=== PATIENT | male | born 1955 | race Caucasian/White ===

== ENCOUNTER → 2022-09-01 12:33 | Outpatient (BNVA) | payer MEDICARE, MEDICAID, SELFPAY | PROVIDERS: PCP Family Medicine; Visit Provider Surgery | DX: Z12.11 Encounter for screening for malignant neoplasm of colon (principal) | CPT/HCPCS: 99202 ==

== ENCOUNTER 2022-09-16 10:23 | Outpatient (REF) | payer MEDICARE, MEDICAID, SELFPAY ==
[2022-09-16 15:42] LABS: Urine Cytology See Pathology rpt
== END 2022-09-16 10:24 | disposition home or self-care (01) ==
LOC: HO.LAB 10:23
PROVIDERS: PCP Family Medicine; Visit Provider Urology
DX: N40.0 Benign prostatic hyperplasia without lower urinary tract symptoms (principal); R31.29 Other microscopic hematuria; Z12.5 Encounter for screening for malignant neoplasm of prostate
CPT/HCPCS: 51798; 87086; 88112; 99202

== ENCOUNTER 2023-01-24 09:34 | Outpatient (REF) | payer MEDICARE, MEDICAID, SELFPAY ==
--- NOTE | ~2023-01-24 | CT_ITS ---
EXAMINATION: CT UROGRAM WITHOUT AND WITH CONTRAST CLINICAL INFORMATION: Reason for Exam R31.29 - Other microscopic hematuria COMPARISON: No pertinent prior examinations are available for comparison. TECHNIQUE: Noncontrast helical scanning was performed with submillimeter collimation through the abdomen and pelvis. Postcontrast helical scanning was then repeated with submillimeter collimation through the abdomen and pelvis in the pyelographic/urographic phase using split dose technique with 85 mL of Omnipaque 350 intravenous contrast. Sagittal and coronal 2-D reconstructions were obtained. This CT examination was performed using dose optimization techniques as appropriate, variously including the following: *Automated exposure control *Adjustment of mA and/or kV according to patient size (this includes techniques or standardized protocols for targeted exams where dose is matched to indication/reason for exam; i.e. extremities or head) *Use of iterative reconstruction technique DLP: 937 mGycm FINDINGS: KIDNEYS, URETERS, BLADDER: Specific attention was given to the kidneys, ureters, and bladder. The right kidney measures 11.2 cm in size and the left kidney measures 10.8 cm in size. NONCONTRAST: Punctate nonobstructive calculus lower left kidney 11 cm from the posterolateral skin surface. 2 mm nonobstructing calculus right lower kidney 11.5 cm from posterior lateral skin surface. POSTCONTRAST NEPHROGRAPHIC/UROGRAPHIC: There are multiple small simple density nonenhancing cysts in the right kidney measuring up to 1.8 cm. No follow-up imaging is recommended. Symmetric nephrograms. No suspicious renal mass. Symmetric urinary excretion. No collecting system lesion is seen. No hydroureteronephrosis. BLADDER: There is a 4.5 x 3.0 x 2.6 cm lobulated and pedunculated mass enhancing along the left wall of the bladder just anterior to the left UVJ. No evidence of local extravesicular extension. PELVIC VISCERA: The prostate measures 5.2 x 3.9 x 4.3 cm, approximately 40 mL. OTHER: LUNG BASES: No suspicious lung nodules. No pericardial effusion. LIVER, GALLBLADDER, AND BILIARY TREE: Tiny simple cysts in the left hepatic lobe. No follow-up imaging is recommended. No suspicious liver mass. No biliary ductal dilatation. The gallbladder is unremarkable with no evidence of radiopaque gallstones, gallbladder wall thickening, or obvious pericholecystic inflammatory changes. PANCREAS: No discrete pancreatic mass. No ductal dilatation. SPLEEN: Normal. ADRENAL GLANDS: No adrenal mass. GASTROINTESTINAL TRACT: The small bowel is normal in caliber. The appendix is normal. There is mild sigmoid diverticulosis without evidence of diverticulitis. ABDOMINAL WALL: No significant hernia is appreciated. LYMPH NODES: No enlarged lymph nodes. VASCULAR: Aortic aneurysm. OSSEOUS STRUCTURES: Degenerative changes in the spine. Well-circumscribed densely sclerotic lesion in the left inferior pubic ramus is likely a bone island. CT/CT urogram IMPRESSION: 4.5 cm pedunculated mass along the left urinary bladder wall suspicious for neoplasm. Cystoscopy is recommended. Tiny bilateral nonobstructing renal calculi. No hydroureteronephrosis.
[2023-01-24] MEDS: iohexoL 350 MG/ML 100 ML INFUS..BTL 85 ML IV (10:30)
[2023-01-25 13:04] LABS: Creatinine POC 1.1 mg/dL (0.5-1.4); GFR POC > 60
== END 2023-01-24 09:35 | disposition home or self-care (01) ==
LOC: HO.CT 09:34
PROVIDERS: PCP Family Medicine; Visit Provider Urology
DX: R31.29 Other microscopic hematuria (principal)
CPT/HCPCS: 74178; 82565; Q9967

== ENCOUNTER → 2023-02-04 08:11 | Outpatient (BNVA) | payer MEDICARE, MEDICAID, SELFPAY | PROVIDERS: PCP Family Medicine; Visit Provider Urology | DX: N32.9 Bladder disorder, unspecified (principal); R31.0 Gross hematuria | CPT/HCPCS: 52000; 99212 ==

== ENCOUNTER 2023-02-15 06:47 | Day surgery (SDC) | payer MEDICARE, MEDICAID, SELFPAY ==
--- NOTE | 2023-02-14 10:09 | HO.ANESPROP2 ---
Documented by User: Sandrita Ahumada NP 02/14/23 10:09 HPI - Anesthesia Eval Consult details Narrative: 67yo M for TUR Bladder Tumor PMFSH Active Problems Active Problems: All Active Problems (Updated 02/14/23 @ 07:58 by Vivian Leon, RN) Microscopic hematuria (Acute) BPH (benign prostatic hyperplasia) (Acute) Screening PSA (prostate specific antigen) (Acute) Lesion of bladder (Acute) Gross hematuria (Acute) Colon cancer screening (Acute) GERD (gastroesophageal reflux disease) (Acute) Past Medical History Medical History Aortic aneurysm Colon cancer screening GERD (gastroesophageal reflux disease) HTN (hypertension) Family History Family History Mother No problems noted. Father Stroke aborted by administration of thrombolytic agent Surgical History Surgical History (Updated 02/15/23 @ 08:54 by Khloe Lord MD) History of colonoscopy Social History Social History Alcohol intake: never Patient Tobacco Use Status: Never used Tobacco Use of substances other than those prescribed or required for medical reasons: No Are you DNR?: No Advance Directives: No Advance Directives Information Provided: Yes Recently lost weight without trying: No Nutrition Risks: No Nutritional Risk Meds Allergies Allergy/AdvReac Type Severity Reaction Status Date / Time No Known Allergies Allergy Verified 02/04/23 08:38 Home Medications Medication Instructions Recorded Confirmed Last Taken Type losartan 50 mg tablet 50 mg PO DAILY 09/16/22 02/15/23 Unknown History magnesium gluconate 27 mg 27 mg PO DAILY 09/16/22 02/15/23 Unknown History magnesium (500 mg) tablet (Mag-G) omeprazole 20 mg capsule,delayed 20 mg PO DAILY 09/16/22 02/15/23 Unknown History release simvastatin 40 mg tablet 40 mg PO BEDTIME 09/16/22 02/15/23 Unknown History Exam Exam Date and Time: February 14, 2023 1009 Assessment and Plan Assessment Anesthesia Assessment: Chart Reviewed Documented by User: Khloe Lord MD 02/15/23 08:56 [facility] Active Problems Active Problems: All Active Problems (Updated 02/15/23 @ 08:40 by Khloe Lord MD) Microscopic hematuria (Acute) BPH (benign prostatic hyperplasia) (Acute) Screening PSA (prostate specific antigen) (Acute) Lesion of bladder (Acute) Gross hematuria (Acute) Colon cancer screening (Acute) GERD (gastroesophageal reflux disease) (Acute) Aortic aneurysm- ? incidental finding on CT urogram. No other information available Past Medical History Medical History Aortic aneurysm Colon cancer screening GERD (gastroesophageal reflux disease) HTN (hypertension) Family History Family History Mother No problems noted. Father Stroke aborted by administration of thrombolytic agent Family history of problems with anesthesia: No Surgical History Surgical History (Updated 02/15/23 @ 08:54 by Khloe Lord MD) History of colonoscopy History of Problems with Anesthesia: No Social History Social History Alcohol intake: never Patient Tobacco Use Status: Never used Tobacco Use of substances other than those prescribed or required for medical reasons: No Are you DNR?: No Advance Directives: No Advance Directives Information Provided: Yes Recently lost weight without trying: No Nutrition Risks: No Nutritional Risk Meds Allergies Allergy/AdvReac Type Severity Reaction Status Date / Time No Known Allergies Allergy Verified 02/04/23 08:38 Home Medications Medication Instructions Recorded Confirmed Last Taken Type losartan 50 mg tablet 50 mg PO DAILY 09/16/22 02/15/23 Unknown History magnesium gluconate 27 mg 27 mg PO DAILY 09/16/22 02/15/23 Unknown History magnesium (500 mg) tablet (Mag-G) omeprazole 20 mg capsule,delayed 20 mg PO DAILY 09/16/22 02/15/23 Unknown History release simvastatin 40 mg tablet 40 mg PO BEDTIME 09/16/22 02/15/23 Unknown History Exam Height,Weight and Vital Signs: Height 6 ft 2 in Weight 91.172 kg Vital Signs Temp Pulse Resp BP Pulse Ox O2 Del Method 02/15/23 07:56 97.5 F 87 16 137/85 98 Room Air Airway Mallampati Class: II TM Dist: >3cm Neck ROM: Full Partial: Upper Loose/Missing/Broken Teeth: Yes (Missing tooth bottom front. Teeth very spaced out but denies broken or loose teeth. [place] top front intact) Heart: RRR Lungs: CTAB Assessment and Plan Assessment Anesthesia Assessment: Anesthesia Plan Discussed Final Anesthetic Review Family History of Problems with Anesthesia: No History of Problems with Anesthesia: No NPO: Yes ASA Class: II Final Preanesthetic Review: No Changes in Pt Med Stat, Meds/Allgs Chart Reviewed, Consent Obtained/Reviewed and Anes Risks/Benef Reviewed Patient Risk: Intermediate Procedure Risk: Low Assessment/Block/Sedation in SS: Assess/Block/Sedation-SS Anesthetic Plan Anesthetic Plan: GA Disposition: Standard PACU
[2023-02-15] VITALS (15 sets, daily range): BP systolic 106–137; BP diastolic 66–95; PULSE 74–96; RESP 12–20; TEMP 36.1–36.6; O2SAT 97–100; BMI 25.8
[2023-02-15] MEDS: Lactated Ringers 1,000 ML 100 ML IVCONT (08:12)
--- NOTE | 2023-02-15 09:23 | MHC.SHP ---
Pre-Procedural Eval Section A Date of Service: 02/15/23 The patient is an INPATIENT: No The History & Physical has been completed within 30 days and I have reviewed it.: Yes Section B Chief Complaint: Bladder disorder, unspecified Allergies: Allergies Allergy/AdvReac Type Severity Reaction Status Date / Time No Known Allergies Allergy Verified 02/04/23 08:38 Plan Diagnosis/Plan: Unchanged I have reviewed the history and physical and performed a pertinent physical examination on my patient. No changes have occurred unless specified. Bladder Tumor. Cysto TURBT Time Spent With Patient Time: Total time managing care of this patient today ____ minutes.
--- NOTE | 2023-02-15 12:05 | W.PM.OPN ---
Operative Note Operative Note Date of Service: 02/15/23 Narrative: PREOP DIAGNOSIS: Bladder tumor POSTOP DIAGNOSIS: Bladder tumor PROCEDURE: CYSTOSCOPY TRANSURETHRAL RESECTION OF BLADDER TUMOR, FULGURATION; cystoscopy random bladder biopsies Anesthesia: General Surgeon Dr. Villalobos Indications: Lenard is being evaluated due to large papillary bladder tumor noted on CT urogram and office cystoscopy Findings: >5 cm papillary bladder tumor, left lateral wall Details of procedure: The patient was brought into the operating room placed on the OR table in supine position. 2 g of Ancef IV. General anesthesia was administered. The patient was repositioned into lithotomy position, prepped and draped in the usual sterile fashion. Time-out was done per protocol. 2 urojet placed. The 24 Bangladeshi resectoscope with obturator was passed transurethrally into the bladder. Visualization of the bladder noted large papillary solitary bladder tumor left lateral wall. No active bleeding noted. The cystoscope was placed and random bladder biopsies were done from the dome, right lateral wall and posterior wall. The resectoscope was replaced and the biopsied areas were cauterized. The loop working element was used to resect the bladder tumor. During resection there was bleeding from the tumor that took time to control and then further resection of the tumor insued however due to the bleeding deep resection into the muscle was not achieved at this time. Once there was good hemostasis the resectoscope was removed. 2 % urojet placed. A [address] 30 cc balloon was passed without difficulty. The patient was brought out of anesthesia and taken to recovery in stable condition. CBI was started in the OR. Complications: None Drains: [address] catheter 25 cc instilled in 30 mL balloon
[2023-02-15] MEDS: Acetaminophen 325 MG TABLET 650 MG PO (12:10)
[2023-02-15] MEDS: oxyCODONE HCl Immed Release 5 MG TABLET PO (12:11)
[2023-02-15] MEDS: fentaNYL citrate/PF 100 MCG/2 ML VIAL 25 MCG IVPUSH ×2 (12:11→13:08)
[2023-02-15 13:06] LABS: MANUAL DIFF FLAG NO
[2023-02-15 13:07] LABS: Basophils Percent Auto 0.3 % (0-2); Eosinophils Percent Auto 0.2 % (0-4); Hematocrit 39.7 % (42.0-52.0); Hemoglobin 13.1 g/dl (14.0-18.0); Imm Gran Abs Auto 0.02 X10*3/uL (0.00-0.03); Imm Gran Pct Auto 0.3 % (0.0-0.4); Lymphocytes Absolute Auto 0.9 X10*3/uL (1.2-4.9); Lymphocytes Percent Auto 13.3 % (20-40); Mean Corpuscular Hemoglobin 28.1 pg (27.0-33.0); Mean Platelet Volume 8.5 fL (9.4-12.4); Monocytes Absolute Auto 0.1 X10*3/uL (0.1-1.2); Monocytes Percent Auto 1.5 % (2-11); Neutrophils Absolute Auto 5.5 x10*3/uL (2.0-8.3); Neutrophils Percent Auto 84.4 % (45-73); Platelet Count 262 X10*3/uL (160-400); Red Blood Count 4.67 X10*6/uL (4.60-5.80); Red Cell Distribution Width 12.9 % (11.0-16.0); White Blood Count 6.5 X10*3/uL (4.8-10.8)
[2023-02-15 13:26] LABS: Anion Gap 11 (12-20); Carbon Dioxide 25 mmol/L (22-29); Chloride 108 mmol/L (96-108); Potassium 4.1 mmol/L (3.3-5.1); Sodium 140 mmol/L (135-145)
== END 2023-02-15 14:55 | disposition home or self-care (01) ==
PROVIDERS: Anesthesiology; PCP Family Medicine; Visit Provider Urology
PROC: 0TBB8ZZ Excision of Bladder, Via Natural or Artificial Opening Endoscopic (ICD-10-PCS; CPT 52224; principal; 2023-02-15 08:40)
DX: C67.2 Malignant neoplasm of lateral wall of bladder (principal)
CPT/HCPCS: 52224; 36415; 80051; 85025; 85027; 88305; 88307; J0690; J1100; J2250; J2405; J3010

== ENCOUNTER → 2023-02-21 13:32 | Outpatient (BNVA) | payer MEDICARE, MEDICAID, SELFPAY | PROVIDERS: PCP Family Medicine; Visit Provider Urology ==

== ENCOUNTER → 2023-03-02 11:04 | Outpatient (BNVA) | payer MEDICARE, MEDICAID, SELFPAY | PROVIDERS: PCP Family Medicine; Visit Provider Urology | DX: Z48.3 Aftercare following surgery for neoplasm (principal); C67.9 Malignant neoplasm of bladder, unspecified | CPT/HCPCS: 51798; 99212 ==

== ENCOUNTER 2023-04-12 09:21 | Day surgery (SDC) | payer MEDICARE, MEDICAID, SELFPAY ==
[2023-04-08 09:29] VITALS: BMI 25.8
--- NOTE | 2023-04-12 10:34 | P.CONAN_ITS ---
HPI - Anesthesia Eval Consult details Narrative: hematuria,cysto PMFSH Active Problems Active Problems: All Active Problems (Updated 04/07/23 @ 11:53 by Socorro Montalvo MD) Microscopic hematuria (Acute) BPH (benign prostatic hyperplasia) (Acute) Screening PSA (prostate specific antigen) (Acute) Lesion of bladder (Acute) Gross hematuria (Acute) Hematuria (Acute) Bladder cancer (Acute) Colon cancer screening (Acute) GERD (gastroesophageal reflux disease) (Acute) Past Medical History Medical History (Updated 04/07/23 @ 11:53 by Socorro Montalvo MD) Aortic aneurysm Colon cancer screening GERD (gastroesophageal reflux disease) HTN (hypertension) Family History Family History Mother No problems noted. Father Stroke aborted by administration of thrombolytic agent Family history of problems with anesthesia: No Surgical History Surgical History (Updated 04/08/23 @ 09:27 by Devi Ellis RN) History of colonoscopy Hx of cystoscopy History of Problems with Anesthesia: No Social History Social History (Updated 04/07/23 @ 11:28 by Kelly Albright) Household Members: Spouse Housing: House Alcohol intake: never Patient Tobacco Use Status: Never used Tobacco Use of substances other than those prescribed or required for medical reasons: No Are you DNR?: No Advance Directives: No Advance Directives Information Provided: Yes Advance Directives on File: No Recently lost weight without trying: No Nutrition Risks: No Nutritional Risk service: No Current occupational status: unemployed Meds Allergies Allergy/AdvReac Type Severity Reaction Status Date / Time No Known Allergies Allergy Verified 04/12/23 10:31 Active Medications: Current Medications Lactated Ringer's (Lr) 1,000 mls @ 100 mls/hr IVCONT .Q10H [facility] Home Medications Medication Instructions Recorded Confirmed Last Taken Type losartan 50 mg tablet 50 mg PO DAILY 09/16/22 04/08/23 Unknown History magnesium gluconate 27 mg 27 mg PO DAILY 09/16/22 04/08/23 Unknown History magnesium (500 mg) tablet (Mag-G) omeprazole 20 mg capsule,delayed 20 mg PO DAILY 09/16/22 04/08/23 Unknown History release simvastatin 40 mg tablet 40 mg PO BEDTIME 09/16/22 04/08/23 Unknown History Exam Exam Date and Time: April 12, 2023 1034 Height,Weight and Vital Signs: Height 6 ft 2 in Weight 91.172 kg Airway Mallampati Class: II TM Dist: >3cm Neck ROM: Limited Heart: rrr Lungs: cta Assessment and Plan Assessment Anesthesia Assessment: Anesthesia Plan Discussed and Chart Reviewed Final Anesthetic Review Family History of Problems with Anesthesia: No History of Problems with Anesthesia: No NPO: Yes Final Preanesthetic Review: No Changes in Pt Med Stat, Meds/Allgs Chart Reviewed, Consent Obtained/Reviewed and Anes Risks/Benef Reviewed Patient Risk: Intermediate Procedure Risk: Intermediate Anesthetic Plan Anesthetic Plan: GA and Agree w/ Assess. and Plan Disposition: Standard PACU
[2023-04-12 10:37] VITALS: BP 139/77; PULSE 75; RESP 16; TEMP 37.2; O2SAT 99
[2023-04-12] MEDS: Lactated Ringers 1,000 ML 100 ML IVCONT (10:50)
--- NOTE | 2023-04-12 11:17 | MHC.SHP ---
Pre-Procedural Eval Section A Date of Service: 04/12/23 The patient is an INPATIENT: No The History & Physical has been completed within 30 days and I have reviewed it.: No Section B Chief Complaint: Bladder disorder, unspecified Details of Present Illness: Lenard is a 68 year old male diagnosed with bladder cancer invasive into lamina propria, muscle absent from specimen, here for further resection base of bladder tumor Relevant Family History (Specify if Yes): No Allergies: Allergies Allergy/AdvReac Type Severity Reaction Status Date / Time No Known Allergies Allergy Verified 04/12/23 10:31 Review of Systems Review of Systems Comment: 10 point ROS negative other than stated in HPI Exam Surgical H&P Exam: Normal: HEENT, Normal: Heart, Normal: Lungs and Normal: Neurological Plan Diagnosis/Plan: Unchanged I have reviewed the history and physical and performed a pertinent physical examination on my patient. No changes have occurred unless specified. cysto TUR, bladder tumor Time Spent With Patient Time: Total time managing care of this patient today ____ minutes.
[2023-04-12 12:30] VITALS: BP 121/77; PULSE 65; RESP 16; TEMP 36.3; O2SAT 95
[2023-04-12 12:35] VITALS: BP 123/67; PULSE 64; RESP 16; O2SAT 99
[2023-04-12 12:40] VITALS: BP 129/75; PULSE 61; RESP 16; O2SAT 99
[2023-04-12 12:45] VITALS: BP 125/74; PULSE 61; RESP 16; O2SAT 99
--- NOTE | 2023-04-12 12:48 | W.PM.OPN ---
Operative Note Operative Note Date of Service: 04/12/23 Narrative: PREOP DIAGNOSIS: Bladder cancer POSTOP DIAGNOSIS: Bladder cancer PROCEDURE: CYSTOSCOPY TRANSURETHRAL RESECTION OF BLADDER TUMOR, FULGURATION Anesthesia: General Surgeon Dr. Narayan Indications: Lenard is a 68 year old male diagnosed with bladder cancer invasive into lamina propria, muscle absent from specimen, here for further resection base of bladder tumor Findings: Erythematous irregular finding <1 cm left lateral wall, in area of prior bladder tumor no significant residual tumor noted, resection of base of bladder tumor done to obtain adequate staging Details of procedure: The patient was brought into the operating room placed on the OR table in supine position. 2 g of Ancef IV. General anesthesia was administered. The patient was repositioned into lithotomy position, prepped and draped in the usual sterile fashion. Time-out was done per protocol. 2% urojet placed. The 24 Tu[place]uan resectoscope with was passed transurethrally into the bladder under direct vision. Visualization of the bladder noted erythematous irregular finding <1 cm left lateral wall, no significant residual tumor noted. The loop resectoscope was used to resect the of base of bladder tumor, muscle was visualized without evidence of perforation, the loop was also used to fulgurate the base of the resected area. Once there was good hemostasis the resectoscope was removed. 2 % urojet placed. The patient was brought out of anesthesia and taken to recovery in stable condition. Complications: None Drains: None
[2023-04-12] MEDS: Phenazopyridine HCL 100 MG TABLET 200 MG PO (12:54)
[2023-04-12 13:00] VITALS: BP 129/76; PULSE 66; RESP 16; TEMP 36.9; O2SAT 99
== END 2023-04-12 14:05 | disposition home or self-care (01) ==
PROVIDERS: PCP Family Medicine; Visit Provider Urology
PROC: 0TBB8ZZ Excision of Bladder, Via Natural or Artificial Opening Endoscopic (ICD-10-PCS; CPT 52224; principal; 2023-04-12 12:00)
DX: C67.2 Malignant neoplasm of lateral wall of bladder (principal); I10 Essential (primary) hypertension
CPT/HCPCS: 52224; 88307; J0131; J0690; J1100; J1885; J2405

== ENCOUNTER → 2023-04-12 09:21 | Outpatient (BNV) | payer MEDICARE, MEDICAID, SELFPAY | PROVIDERS: PCP Family Medicine; Visit Provider Urology | DX: C67.2 Malignant neoplasm of lateral wall of bladder (principal) | CPT/HCPCS: 52234 ==

== ENCOUNTER → 2023-05-04 13:00 | Outpatient (BNV) | payer MEDICARE, MEDICAID, SELFPAY | PROVIDERS: PCP Family Medicine; Visit Provider Internal Medicine | DX: C67.9 Malignant neoplasm of bladder, unspecified (principal) | CPT/HCPCS: 99213; 99214 ==

== ENCOUNTER 2023-05-13 14:09 | Outpatient (AMB) | payer MEDICARE, MEDICAID, SELFPAY ==
--- NOTE | 2023-05-13 12:42 | A.OFFVIS_ITS ---
Intake Intake Visit Reasons: S/P TUR Bladder Tumor/PET CT- follow up Intake Note: Patient presents today for a follow-up on Post Op S/P TUR Bladder Tumor: Meds- None Allergies to Antibiotic- No Known Allergies Blood Thinner- None Armhole Feller Handstitching Machine Required: Yes Armhole Feller Handstitching Machine Language: Client Consultant Name: YAO Sanford/SARAI GOMEZ Information Interpreted: non-clinical & clinical Accompanied by: Significant Other Allergies No Known Allergies Allergy (Verified 05/13/23 14:35) HPI HPI Comments History of Present Illness Details 05/13/2023? Lenard is a 68-year-old male who presents today to the office for a follow up on status post TURBT x 2 bladder tumor/PET CT. The patient is a Croatian speaking male. 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 He was last seen by me on 03/02/2023. I have reviewed the pathology results. Initial pathology results from 02/15/23 do indicate invasive papillary urothelial carcinoma, high grade. There was invasion into the lamina propria and muscularis propria is not identified in the specimen. 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 Follow up surveillance office Cystoscopy in 4 months. [facility] Medical History Aortic aneurysm Colon cancer screening GERD (gastroesophageal reflux disease) HTN (hypertension) Surgical History (Updated 05/04/23 @ 13:37 by Socorro Montalvo MD) History of colonoscopy Hx of cystoscopy Family History Mother No problems noted. Father Stroke aborted by administration of thrombolytic agent Social History Household Members: Spouse Housing: House Alcohol intake: never Patient Tobacco Use Status: Never used Tobacco service: No Current occupational status: unemployed Results AMB Urinalysis, Automated UA Leukoctes 0 Juan R/uL Last Edit by Darcy Pal Alfonso on 05/13/23 14:40 UA Nitrite Negative Last Edit by Darcy Pal [facility] on 05/13/23 14:40 UA Urobilinogen 0.2 mg/dL Last Edit by Darcy Pal [facility] on 05/13/23 14:4 0 UA Protein 6.0 mg/dL Last Edit by Darcy Pal [facility] on 05/13/23 14:40 UA pH 10 Last Edit by Darcy Pal [facility] on 05/13/23 14:40 UA Blood 10 Hola/uL Last Edit by Darcy Pal [facility] on 05/13/23 14:40 UA Specific Corry 1.015 Last Edit by Darcy Pal [facility] on 05/13/23 14: 40 UA Ketone Last Edit by Darcy Pal [facility] on 05/13/23 14:40 UA Bilirubin 0 mg/dL Last Edit by Darcy Pal [facility] on 05/13/23 14:40 UA Glucose 0 mg/dL Last Edit by Darcy Pal [facility] on 05/13/23 14:40 Results Reviewed Results Reviewed: Laboratory Last Values Urine pH (Auto) 10 05/13/23 14:38 Specific Corry (Auto) 1.015 05/13/23 14:38 Urine Protein (Auto) 6.0 mg/dL 05/13/23 14:38 Glucose (UA)(Auto) 0 mg/dL 05/13/23 14:38 Urine Blood (Auto) 10 Hola/uL 05/13/23 14:38 Urine Nitrite (Auto) Negative 05/13/23 14:38 Urine Bilirubin (Auto) 0 mg/dL 05/13/23 14:38 Urine Urobilinogen (Auto) 0.2 mg/dL 05/13/23 14:38 Leukocyte Esterase (Auto) 0 Juan R/uL 05/13/23 14:38 Date of service: 02/15/2023-- Diagnosis A.? Urinary bladder, posterior wall, biopsy:? Benign urothelium with muscularis propria present.? B.? Urinary bladder, right lateral wall, biopsy:? Benign urothelium with muscularis propria present. C.? Urinary bladder, dome, biopsy:? Benign urothelium with muscularis propria present. D.? Urinary bladder, left lateral wall, transurethral resection: -Invasive papillary urothelial carcinoma, high grade.?? -Tumor invades subepithelial connective tissue (lamina propria).? -Muscularis propria is not identified. Synoptic report - Bladder, transurethral resection/biopsy Procedure:? Transurethral resection Tumor site:? Per operative note:? Left lateral wall Histologic type:??Papillary urothelial carcinoma, invasive Histologic grade:? High-grade Muscularis propria:? Not identified Extent of invasion:? Invades lamina propria (subepithelial connective tissue)? Lymphovascular invasion:? Not identified Note: Diagnosis corrected from low grade to high grade. Communication note added. Clinical History Pre-Op Dx:? Bladder disorder, unspecified Microscopic Description Microscopic sections reviewed.? Part D shows a proliferation of atypical cells with thickened complex papillary architecture.? The malignant cells show mild variability in size and shape, with mild cell polarity alterations.? The cells have clumped chromatin and visible nucleoli, and few mitotic figures are seen.? The specimen is marked good Sujatha fragmented, with foci of lamina propria invasion identified.? There is a minimal amount of high-grade tumor present (less than 5%).? No muscularis propria is identified. Material Received A: Posterior wall B: Right lateral wall C: Dome D: Bladder tumor Gross Description A.? Received in formalin is 1 cortés 3 mm soft tissue fragment, totally submitted in A1. B.? Received in formalin is 1 cortés 2 mm soft tissue fragment, totally submitted in B1. C.? Received in formalin is 1 cortés 2 mm soft tissue fragment, totally submitted in C1. D.? Received in formalin is an 8 cc aggregate of cortés-red soft tissue fragments and blood clot, totally submitted in cassettes 1-4.? ([id number]) Date of service: 04/12/2023-- Diagnosis Bladder, base of tumor on left lateral wall, transurethral resection:? 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 No residual tumor identified. Clinical History Pre-Op Dx:? Bladder disorder, unspecified Post-Op Dx: Bladder disorder Microscopic Description Microscopic sections reviewed. Material Received Base of bladder tumor on the left lateral wall Gross Description Received in formalin labeled ?base of bladder tumor on lateral wall? are 4 glistening, semitranslucent, rubbery, cortés-pink cauterized chips of tissue ranging from 0.45-0.5 cm in greatest dimension which are submitted in toto in a single cassette labeled A.? Assessment & Plan Assessment & Plan (1) Bladder cancer: Code(s): C67.9 - Malignant neoplasm of bladder, unspecified Plan Gemcitabine bladder instillations weekly for 6 weeks. Follow up surveillance office Cystoscopy in 4 months. Orders: Orders AMB Urinalysis Automated 05/13/23 Z13.9 - Encounter for screening, unspecified Patient Instructions: The patient had an opportunity to ask questions regarding treatment plan. All questions were answered. Imaging, Laboratory studies and physical exam results were discussed and reviewed in detail. No major barriers to understanding were identified. The patient expressed understanding and agreement with the above treatment plan.? ? ? The patient is aware they should contact our office by phone for worsening of their current condition or the appearance of new symptoms. Compliance is encouraged with any medications and followup testing that is ordered.? ? ? It is a privilege to be allowed the opportunity to participate in the urologic care of your patient. If you have any questions or concerns regarding treatment for the above conditions please do not hesitate to contact me. The office telephone contact is [phone].? ? ? This note is constructed in part using voice recognition software. While every effort has been made to ensure accuracy dam operator errors may have been included.? ? ? Yours sincerely,? ? ? Betsey Villalobos MD? ? Coding Level of Care Code Est Pt Level 4 (76720) Diagnoses Bladder cancer C67.9
== END 2023-05-13 14:57 | disposition home or self-care (01) ==
PROVIDERS: PCP Family Medicine; Visit Provider Urology
DX: C67.2 Malignant neoplasm of lateral wall of bladder (principal)
CPT/HCPCS: 99214

== ENCOUNTER → 2023-05-13 14:09 | Outpatient (BNVA) | payer MEDICARE, MEDICAID, SELFPAY | PROVIDERS: PCP Family Medicine; Visit Provider Urology | DX: C67.9 Malignant neoplasm of bladder, unspecified (principal) | CPT/HCPCS: 99212 ==

== ENCOUNTER 2023-05-26 16:19 | Outpatient (REF) | payer MEDICARE, MEDICAID, SELFPAY ==
--- NOTE | ~2023-05-26 | MR_ITS ---
EXAMINATION: MR PELVIS WITHOUT AND WITH CONTRAST CLINICAL INFORMATION: Bladder cancer. COMPARISON: Previous CT of the abdomen and pelvis from January 2023 TECHNIQUE: Sagittal, axial and coronal sequences through the pelvis with and without contrast. FINDINGS: There is focal wall thickening along the left lateral bladder wall. Previously identified pedunculated mass adjacent to the left lateral bladder wall though longer seen. The perivesicular fat is normal. The prostate gland measures 3 x 5 x 4 cm in dimension and is slightly enlarged. No enlarged lymph nodes. No ascites. Visualized bowel is unremarkable. No hernia. Normal vascular structures. Degenerative disc disease of the lower lumbar spine. MR/MR pelvis wo/w con IMPRESSION: Focal wall thickening along the left lateral bladder wall. Previously identified pedunculated mass adjacent to the left lateral bladder wall no longer seen. No enlarged lymph nodes. Slightly enlarged prostate gland.
[2023-05-26] MEDS: gadobutroL 10 ML VIAL IVPUSH (17:36)
== END 2023-05-26 16:20 | disposition home or self-care (01) ==
LOC: HO.MRI 16:19
PROVIDERS: PCP Family Medicine; Visit Provider Internal Medicine
DX: C67.9 Malignant neoplasm of bladder, unspecified (principal)
CPT/HCPCS: 72197; A9585

== ENCOUNTER 2023-09-12 14:02 | Outpatient (AMB) | payer MEDICARE, MEDICAID, SELFPAY ==
--- NOTE | 2023-09-12 14:09 | A.OFFVIS_ITS ---
Intake Intake Visit Reasons: 4m/cysto Intake Note: Patient presents today for a CYSTOSCOPY Procedure: Meds: None Allergies to Antibiotic: No Known Allergies Blood Thinner: None Urinalysis test cleared for Cysto Disposable Uro-G Cystoscope Cannula: Lot: [id number] Exp: 02/13/2025 Allergies No Known Allergies Allergy (Verified 05/13/23 14:35) HPI HPI Comments History of Present Illness Details 09/12/23-- The patient is a Wolof speaking male. 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 He was last seen by me on 05/13/23. He has Completed Gemcitabine bladder instillations weekly for 6 weeks. Initial pathology results from 02/15/23 -- invasive papillary urothelial carcinoma, high grade. There was invasion into the lamina propria and muscularis propria is not identified in the specimen. 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 Office cysto- 09/12/23--Bladder no recurrence Review of chart: Initial pathology results from 02/15/23 do indicate invasive papillary urothelial carcinoma, high grade. There was invasion into the lamina propria and muscularis propria is not identified in the specimen. 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 Pt states going to [place] - and will be back in January 2024 [facility] Medical History HTN (hypertension) Aortic aneurysm Colon cancer screening GERD (gastroesophageal reflux disease) Surgical History Hx of cystoscopy History of colonoscopy Family History Mother No problems noted. Father Stroke aborted by administration of thrombolytic agent Social History Household Members: Spouse Housing: House Alcohol intake: never Patient Tobacco Use Status: Never used Tobacco service: No Current occupational status: unemployed Review of Systems Const All systems reviewed & are unremarkable except as noted in HPI and below Reports no additional complaints Eyes Reports no additional complaints ENT Denies neck pain Card Denies leg edema Resp Denies cough GI Denies constipation Musc Reports no additional complaints and Denies neck pain Skin/Breast Denies rash and Denies unusual bruising Neuro Reports no additional complaints Psych Reports no additional complaints Endo Reports no additional complaints Surinder/Lymph Reports no additional complaints Aller/Immun Reports no additional complaints Office Procedures Cystoscopy Consent Discussed risk and benefit or proposed procedure with the patient. Information consent for procedure given to the patient. Discussed technical aspects, risks, benefits and alternatives in full. Addressed all of the patient's questions and concerns regarding the procedure. The patient demonstrated knowledge and understanding. They wish to proceed with this procedure. Preparation The patient was prepped in the usual manner. A seam hammerer was present and in the room. Genitalia was prepped with betadine solution in a sterile manner. Lidocaine Jelly 2% was placed into the urethra and 16Fr flexible Olympus cystoscope was inserted into the meatus after adequate lubrication. Procedure Time out per protocol performed. Bladder Inspection Bladder Inspection: The bladder was inspected in its entirety with utilization retroflexion displaying: Tumor(s): none visualized - No evidence of recurrence Trabeculation: N/A Mucosal Erthema: N/A Orifices: normal shape and position Urethra: normal Cystoscopy findings: prostatic urethra non obstructive, bulbous urethra WNL, no suspicious bladder lesions visualized [id number] DISPOSABLE SCOPE URO-G FLEXIBLE SCOPE Procedure code (CPT) selection complete Office Meds lidocaine HCl 2 % mucosal jelly in applicator Performing Provider: Betsey Villalobos MD [place] [facility] [place] [facility] Documented (not given) by: Betsey Villalobos MD on 09/12/23 17:52 Dose Route Admin Location Dispensed Lot Number Expiration Date NDC Papier Mache' Molder 10 mL intra-urethral mL naproxen 500 mg tablet Performing Provider: Betsey Villalobos MD [place] [facility] [place] [facility] Documented (not given) by: Betsey Villalobos MD on 09/12/23 17:52 Dose Route Admin Location Dispensed Lot Number Expiration Date NDC Papier Mache' Molder 500 mg PO tab ciprofloxacin HCl 500 mg tablet Performing Provider: Betsey Villalobos MD [place] [facility] [place] [facility] Documented (not given) by: Betsey Villalobos MD on 09/12/23 17:52 Dose Route Admin Location Dispensed Lot Number Expiration Date NDC Papier Mache' Molder 500 mg PO tab Results AMB Urinalysis, Automated UA Leukoctes 0 Juan R/uL Last Edit by Darcy Pal [facility] on 09/12/23 14:26 UA Nitrite Negative Last Edit by Darcy Pal [facility] on 09/12/23 14:26 UA Urobilinogen 0.2 mg/dL Last Edit by Darcy Pal [facility] on 09/12/23 14:2 6 UA Protein 15 mg/dL Last Edit by Darcy Pal [facility] on 09/12/23 14:26 UA pH 6.0 Last Edit by Darcy Pal [facility] on 09/12/23 14:26 UA Blood 0 Hola/uL Last Edit by Darcy Pal [facility] on 09/12/23 14:26 UA Specific [place] 1.025 Last Edit by Darcy Pal [facility] on 09/12/23 14: 26 UA Ketone Negative Last Edit by Darcy Pal [facility] on 09/12/23 14:26 UA Bilirubin 0 mg/dL Last Edit by Darcy Pal [facility] on 09/12/23 14:26 UA Glucose 0 mg/dL Last Edit by Darcy Pal [facility] on 09/12/23 14:26 Results Reviewed Results Reviewed: Laboratory Last Values Urine pH (Auto) 6.0 09/12/23 14:22 Specific [place] (Auto) 1.025 09/12/23 14:22 Urine Protein (Auto) 15 mg/dL 09/12/23 14:22 Glucose (UA)(Auto) 0 mg/dL 09/12/23 14:22 Urine Ketones (Auto) Negative 09/12/23 14:22 Urine Blood (Auto) 0 Hola/uL 09/12/23 14:22 Urine Nitrite (Auto) Negative 09/12/23 14:22 Urine Bilirubin (Auto) 0 mg/dL 09/12/23 14:22 Urine Urobilinogen (Auto) 0.2 mg/dL 09/12/23 14:22 Leukocyte Esterase (Auto) 0 Juan R/uL 09/12/23 14:22 Collected: 02/15/23 Location: [facility] Received: 02/15/23 THIS IS A CORRECTED REPORT This is a corrected report. Any previous versions are stored internally and are available if necessary. Diagnosis A. Urinary bladder, posterior wall, biopsy: Benign urothelium with muscularis propria present. B. Urinary bladder, right lateral wall, biopsy: Benign urothelium with muscularis propria present. C. Urinary bladder, dome, biopsy: Benign urothelium with muscularis propria present. D. Urinary bladder, left lateral wall, transurethral resection: -Invasive papillary urothelial carcinoma, high grade. -Tumor invades subepithelial connective tissue (lamina propria). -Muscularis propria is not identified. Synoptic report - Bladder, transurethral resection/biopsy Procedure: Transurethral resection Tumor site: Per operative note: Left lateral wall Histologic type: Papillary urothelial carcinoma, invasive Histologic grade: High-grade Muscularis propria: Not identified Extent of invasion: Invades lamina propria (subepithelial connective tissue) Lymphovascular invasion: Not identified Note: Diagnosis corrected from low grade to high grade. Communication note added. 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 Assessment & Plan Assessment & Plan (1) Bladder cancer: Code(s): C67.9 - Malignant neoplasm of bladder, unspecified Plan FU surveillance cysto 3 months Orders: Orders AMB Urinalysis Automated Today Z13.9 - Encounter for screening, unspecified AMB Cystoscopy Today C67.9 - Malignant neoplasm of bladder, unspecified Medications: New naproxen 500 mg PO ONCE 1 tab 0RF C67.9 - Malignant neoplasm of bladder, unspecified lidocaine HCl 2% 10 mL intra-urethral .x 2 20 mL 0RF C67.9 - Malignant neoplasm of bladder, unspecified ciprofloxacin HCl 500 mg PO ONCE 1 tab 0RF C67.9 - Malignant neoplasm of bladder, unspecified Patient Instructions: The patient had an opportunity to ask questions regarding treatment plan. All questions were answered. Laboratory studies and physical exam results were discussed and reviewed in detail. No major barriers to understanding were identified. The patient expressed understanding and agreement with the above treatment plan. The patient is aware they should contact our office by phone for worsening of their current condition or the appearance of new symptoms. Compliance is encouraged with any medications and followup testing that is ordered. It is a privilege to be allowed the opportunity to participate in the urologic care of your patient. If you have any questions or concerns regarding treatment for the above conditions please do not hesitate to contact me. The office telephone contact is [phone]. This note is constructed in part using voice recognition software. While every effort has been made to ensure accuracy forklift material handler errors may have been included. Yours sincerely, Betsey Villalobos MD Coding Level of Care Code Procedure Only Diagnoses Bladder cancer C67.9 CPT Codes Cystoscopy - CPT: 70040-[id number] ([id number])
== END 2023-09-12 15:38 | disposition home or self-care (01) ==
PROVIDERS: PCP Family Medicine; Visit Provider Urology
DX: C67.9 Malignant neoplasm of bladder, unspecified (principal); Z13.9 Encounter for screening, unspecified
CPT/HCPCS: 52000

== ENCOUNTER → 2023-09-12 14:02 | Outpatient (BNVA) | payer MEDICARE, MEDICAID, SELFPAY | PROVIDERS: PCP Family Medicine; Visit Provider Urology | DX: C67.9 Malignant neoplasm of bladder, unspecified (principal) | CPT/HCPCS: 52000; 81003 ==

== ENCOUNTER 2024-01-12 13:44 | Outpatient (AMB) | payer MEDICARE, MEDICAID, SELFPAY ==
--- NOTE | 2024-01-12 14:21 | AM.OFFVISNUR ---
Intake Intake Visit Reasons: cysto Allergies No Known Allergies Allergy (Verified 05/13/23 14:35) Office Procedures Cystoscopy Consent Discussed risk and benefit or proposed procedure with the patient. Information consent for procedure given to the patient. Discussed technical aspects, risks, benefits and alternatives in full. Addressed all of the patient's questions and concerns regarding the procedure. The patient demonstrated knowledge and understanding. They wish to proceed with this procedure. Preparation The patient was prepped in the usual manner. A contour band saw operator vertical was present and in the room. Genitalia was prepped with betadine solution in a sterile manner. Lidocaine Jelly 2% was placed into the urethra and 16Fr flexible Olympus cystoscope was inserted into the meatus after adequate lubrication. [id number] DISPOSABLE SCOPE URO-G FLEXIBLE SCOPE Procedure code (CPT) selection complete Office Meds lidocaine HCl 2 % mucosal jelly in applicator Performing Provider: Betsey Villalobos MD [place]forming [place] [facility] [place] [facility] Administered by: Percy West LPN on 01/12/24 14:21 Dose Route Admin Location Dispensed Lot Number Expiration Date [facility] Back Shoe Operator 10 mL intra-urethral 20 mL naproxen 500 mg tablet Performing Provider: Betsey Villalobos MD Performing Location: [facility] [place] [facility] Administered by: Percy West LPN on 01/12/24 14:21 Dose Route Admin Location Dispensed Lot Number Expiration Date [facility] Back Shoe Operator 500 mg PO 1 tab ciprofloxacin HCl 500 mg tablet Performing Provider: Betsey Villalobos MD Performing Location: [facility] [place] [facility] Administered by: Percy West LPN on 01/12/24 14:21 Dose Route Admin Location Dispensed Lot Number Expiration Date [facility] Back Shoe Operator 500 mg PO 1 tab Coding CPT Codes Cystoscopy - CPT: 50737-[id number] ([id number]) Assessment & Plan Assessment & Plan Orders: Orders AMB Cystoscopy Today C67.9 - Malignant neoplasm of bladder, unspecified, R31.29 - Other microscopic hematuria Medications: New lidocaine HCl 2% 10 mL intra-urethral ONCE 20 mL 0RF C67.9 - Malignant neoplasm of bladder, unspecified, R31.29 - Other microscopic hematuria naproxen 500 mg PO ONCE 1 tab 0RF C67.9 - Malignant neoplasm of bladder, unspecified, R31.29 - Other microscopic hematuria ciprofloxacin HCl 500 mg PO ONCE 1 tab 0RF C67.9 - Malignant neoplasm of bladder, unspecified, R31.29 - Other microscopic hematuria
--- NOTE | 2024-01-12 14:31 | A.OFFVIS_ITS ---
Intake Intake Visit Reasons: cysto Intake Note: Patient presents today for a CYSTOSCOPY Procedure: Meds: None Allergies to Antibiotic: No Known Allergies Blood Thinner: None Urinalysis test clear for Cysto? 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 He was diagnosed with invasive urothelial carcinoma into the lamina propria status post cystoscopy TURBT on 02/15/2023; repeat cystoscopy TUR base of bladder tumor and biopsy on 04/12/2023- was negative. He completed gemcitabine bladder installation weekly for 6 weeks. He is here for surveillance office cystoscopy. He denies irritative voiding symptoms he denies gross hematuria. Urinalysis leukocytes negative blood negative. Office cystoscopy-findings: Bladder mucosa previous biopsied areas scarring noted no recurrent or suspicious bladder lesions noted. Plan urine for cytology, office cystoscopy surveillance every 3 months 1-1/2 - 2 years. Review of chart: 09/12/23-- The patient is a Cambodian speaking male. 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 He was last seen by me on 05/13/23. He has Completed Gemcitabine bladder instillations weekly for 6 weeks. Initial pathology results from 02/15/23 -- invasive papillary urothelial carcinoma, high grade. There was invasion into the lamina propria and muscularis propria is not identified in the specimen. 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 Office cysto- 09/12/23--Bladder no recurrence Results: Initial pathology results from 02/15/23 do indicate invasive papillary urothelial carcinoma, high grade. There was invasion into the lamina propria and muscularis propria is not identified in the specimen. 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 [facility] Medical History HTN (hypertension) Aortic aneurysm Colon cancer screening GERD (gastroesophageal reflux disease) Surgical History Hx of cystoscopy History of colonoscopy Family History Mother No problems noted. Father Stroke aborted by administration of thrombolytic agent Social History Household Members: Spouse Housing: House Alcohol intake: never Patient Tobacco Use Status: Never used Tobacco service: No Current occupational status: unemployed Review of Systems Const All systems reviewed & are unremarkable except as noted in HPI and below Reports no additional complaints Eyes Reports no additional complaints ENT Reports no additional complaints Card Reports no additional complaints Resp Reports no additional complaints GI Reports no additional complaints Reports as per HPI Musc Reports no additional complaints Skin/Breast Reports system reviewed and no additional complaints, except as documented Neuro Reports no additional complaints Psych Reports no additional complaints Endo Reports no additional complaints Surinder/Lymph Reports no additional complaints Aller/Immun Reports no additional complaints Office Procedures Cystoscopy Consent Discussed risk and benefit or proposed procedure with the patient. Information consent for procedure given to the patient. Discussed technical aspects, risks, benefits and alternatives in full. Addressed all of the patient's questions and concerns regarding the procedure. The patient demonstrated knowledge and understanding. They wish to proceed with this procedure. Preparation The patient was prepped in the usual manner. A timber killer was present and in the room. Genitalia was prepped with betadine solution in a sterile manner. Lidocaine Jelly 2% was placed into the urethra and 16Fr flexible Olympus cystoscope was inserted into the meatus after adequate lubrication. [id number] DISPOSABLE SCOPE URO-G FLEXIBLE SCOPE Procedure code (CPT) selection complete Office Meds lidocaine HCl 2 % mucosal jelly in applicator Performing Provider: Betsey Villalobos MD Performing Location: [facility] [place] [facility] Administered by: Percy West LPN on 01/12/24 14:21 Dose Route Admin Location Dispensed Lot Number Expiration Date NDC Communications Controller 10 mL intra-urethral 20 mL naproxen 500 mg tablet Performing Provider: Betsey Villalobos MD Performing Location: [facility] [place] [facility] Administered by: Percy West LPN on 01/12/24 14:21 Dose Route Admin Location Dispensed Lot Number Expiration Date NDC Communications Controller 500 mg PO 1 tab ciprofloxacin HCl 500 mg tablet Performing Provider: Betsey Villalobos MD Performing Location: [facility] [place] [facility] Administered by: Percy West LPN on 01/12/24 14:21 Dose Route Admin Location Dispensed Lot Number Expiration Date NDC Communications Controller 500 mg PO 1 tab Results AMB Urinalysis, Automated UA Leukoctes 0 Juan R/uL Last Edit by YAO Sanford on 01/12/24 14:35 UA Nitrite Negative Last Edit by Darcy Pal Alfonso on 01/12/24 14:35 UA Urobilinogen 0.2 mg/dL Last Edit by Darcy Pal [facility] on 01/12/24 14:3 5 UA Protein 15 mg/dL Last Edit by Darcy Pal Alfonso on 01/12/24 14:35 UA pH 5.5 Last Edit by Darcy Pal [facility] on 01/12/24 14:35 UA Blood 0 Hola/uL Last Edit by Darcy Pal Alfon[place] on 01/12/24 14:35 UA Specific [place] 1.025 Last Edit by Darcy Pal [facility] on 01/12/24 14: 35 UA Ketone Negative Last Edit by YAO Sanford on 01/12/24 14:35 UA Bilirubin 0 mg/dL Last Edit by Darcy Pal Alfon[place] on 01/12/24 14:35 UA Glucose 0 mg/dL Last Edit by Darcy Pal [facility] on 01/12/24 14:35 Results Reviewed Results Reviewed: Laboratory Last Values Urine pH (Auto) 5.5 01/12/24 14:34 Specific [place] (Auto) 1.025 01/12/24 14:34 Urine Protein (Auto) 15 mg/dL 01/12/24 14:34 Glucose (UA)(Auto) 0 mg/dL 01/12/24 14:34 Urine Ketones (Auto) Negative 01/12/24 14:34 Urine Blood (Auto) 0 Hola/uL 01/12/24 14:34 Urine Nitrite (Auto) Negative 01/12/24 14:34 Urine Bilirubin (Auto) 0 mg/dL 01/12/24 14:34 Urine Urobilinogen (Auto) 0.2 mg/dL 01/12/24 14:34 Leukocyte Esterase (Auto) 0 Juan R/uL 01/12/24 14:34 Assessment & Plan Assessment & Plan (1) Bladder cancer: Code(s): C67.9 - Malignant neoplasm of bladder, unspecified Plan urine for cytology office cystoscopy surveillance every 3 months 1-1/2 - 2 years. Orders: Orders AMB Urinalysis Automated Today Z13.9 - Encounter for screening, unspecified AMB Cystoscopy Today C67.9 - Malignant neoplasm of bladder, unspecified, R31.29 - Other microscopic hematuria Patient Instructions: The patient had an opportunity to ask questions regarding treatment plan. All questions were answered. Imaging, Laboratory studies and physical exam results were discussed and reviewed in detail. No major barriers to understanding were identified. The patient expressed understanding and agreement with the above treatment plan. The patient is aware they should contact our office by phone for worsening of their current condition or the appearance of new symptoms. Compliance is encouraged with any medications and followup testing that is ordered. It is a privilege to be allowed the opportunity to participate in the urologic care of your patient. If you have any questions or concerns regarding treatment for the above conditions please do not hesitate to contact me. The office telephone contact is [phone]. This note is constructed in part using voice recognition software. While every effort has been made to ensure accuracy concrete stone finisher errors may have been included. Yours sincerely, Betsey Villalobos MD Coding Level of Care Code Procedure Only Diagnoses Bladder cancer C67.9 CPT Codes Cystoscopy - CPT: 22273-[id number] ([id number])
== END 2024-01-12 15:05 | disposition home or self-care (01) ==
PROVIDERS: PCP Family Medicine; Visit Provider Urology
DX: C67.9 Malignant neoplasm of bladder, unspecified (principal); R31.29 Other microscopic hematuria; Z13.9 Encounter for screening, unspecified
CPT/HCPCS: 52000

== ENCOUNTER 2024-01-12 13:44 | Outpatient (REF) | payer MEDICARE, MEDICAID, SELFPAY ==
[2024-01-12 17:12] LABS: Urine Cytology See Pathology rpt
== END 2024-01-12 13:45 | disposition home or self-care (01) ==
LOC: HO.LAB 13:44
PROVIDERS: PCP Family Medicine; Visit Provider Urology
DX: C67.9 Malignant neoplasm of bladder, unspecified (principal); R31.29 Other microscopic hematuria
CPT/HCPCS: 52000; 81003; 88112

== ENCOUNTER 2024-04-12 14:28 | Outpatient (REF) | payer MEDICARE, MEDICAID, SELFPAY | END 2024-04-12 14:29 | disposition home or self-care (01) | LOC: HO.LAB 14:28 | PROVIDERS: PCP Family Medicine; Visit Provider Urology | DX: C67.9 Malignant neoplasm of bladder, unspecified (principal) | CPT/HCPCS: 52000; 81003; 88121 ==

== ENCOUNTER 2024-04-12 14:28 | Outpatient (AMB) | payer MEDICARE, MEDICAID, SELFPAY ==
--- NOTE | 2024-04-12 14:48 | MHC.OFFVIS ---
Intake Visit Reasons: cysto Intake Note: Patient is Present for Cystoscopy Urology Med: None Antibiotic Allergy:None Blood Thinner: None Diabetic: NO Diabetic Medication: None URO- G Disposable Cystoscope lot: [id number] exp:11/17/2026 Last Cytology- 01/12/2024- negative for malignant cells Technical Service Representative Required: No Allergies No Known Allergies Allergy (Verified 04/12/24 15:02) HPI Comments Details: 04/12/24--Here for surveillance office cystoscopy--the patient is here with his who interprets for him. He states he is doing well denies irritative or obstructive voiding symptoms, denies gross hematuria. Cystoscopy findings: Bladder mucosa no suspicious recurrence bladder lesions visualized. 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 He completed gemcitabine bladder installation weekly for 6 weeks. He is here for surveillance office cystoscopy. He denies irritative voiding symptoms he denies gross hematuria. Urinalysis leukocytes negative blood negative. 01/12/2024--Office cystoscopy-findings: Bladder mucosa previous biopsied areas scarring noted no recurrent or suspicious bladder lesions noted. Plan urine for cytology, office cystoscopy surveillance every 3 months 1-1/2 - 2 years. 09/12/23-- Office cysto- 09/12/23--Bladder no recurrence The patient is a [place] Leonean speaking male. 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 He was last seen by me on 05/13/23. He has Completed Gemcitabine bladder instillations weekly for 6 weeks. Initial pathology results from 02/15/23 -- invasive papillary urothelial carcinoma, high grade. There was invasion into the lamina propria and muscularis propria is not identified in the specimen. 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 Results: Initial pathology results from 02/15/23 -- indicate invasive papillary urothelial carcinoma, high grade. There was invasion into the- lamina propria and muscularis propria is not identified in the specimen. 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 Father Stroke aborted by administration of thrombolytic agent Social History Household Members: Spouse Housing: House Alcohol intake: never Patient Tobacco Use Status: Never used Tobacco service: No Current occupational status: unemployed Review of Systems Const All systems reviewed & are unremarkable except as noted in HPI and below Reports no additional complaints Eyes Reports no additional complaints ENT Reports no additional complaints Card Reports no additional complaints Resp Reports no additional complaints GI Reports no additional complaints Reports as per HPI Musc Reports no additional complaints Skin/Breast Reports system reviewed and no additional complaints, except as documented Neuro Reports no additional complaints Psych Reports no additional complaints Endo Reports no additional complaints Surinder/Lymph Reports no additional complaints Aller/Immun Reports no additional complaints Office Procedures Cystoscopy Consent Discussed risk and benefit or proposed procedure with the patient. Information consent for procedure given to the patient. Discussed technical aspects, risks, benefits and alternatives in full. Addressed all of the patient's questions and concerns regarding the procedure. The patient demonstrated knowledge and understanding. They wish to proceed with this procedure. Preparation The patient was prepped in the usual manner. A notereader was present and in the room. Genitalia was prepped with betadine solution in a sterile manner. Lidocaine Jelly 2% was placed into the urethra and 16Fr flexible Olympus cystoscope was inserted into the meatus after adequate lubrication. Procedure Time out per protocol performed. Bladder Inspection Bladder Inspection: The bladder was inspected in its entirety with utilization retroflexion displaying: Tumor(s): No recurrent lesions visualized Trabeculation: Mild Mucosal Erthema: NA Orifices: normal shape and position Urethra: normal Cystoscopy findings: prostatic urethra non obstructive, bulbous urethra WNL, no suspicious bladder lesions visualized [id number] DISPOSABLE SCOPE URO-G FLEXIBLE SCOPE Procedure code (CPT) selection complete Office Meds lidocaine HCl 2 % mucosal jelly in applicator Performing Provider: Betsey Villalobos MD Performing Location: [facility] [place] [facility] Administered by: Percy West LPN on 04/12/24 15:07 Dose Route Admin Location Dispensed Lot Number Expiration Date NDC Inclusion Specialist 10 mL intra-urethral 20 mL naproxen 500 mg tablet Performing Provider: Betsey Villalobos MD Performing Location: [facility] [place] Urology [facility] Administered by: Percy West LPN on 04/12/24 15:07 Dose Route Admin Location Dispensed Lot Number Expiration Date NDC Inclusion Specialist 500 mg PO 1 tab ciprofloxacin HCl 500 mg tablet Performing Provider: Betsey Villalobos MD Performing Location: [facility] [place] U[facility] Administered by: Percy West LPN on 04/12/24 15:07 Dose Route Admin Location Dispensed Lot Number Expiration Date NDC Inclusion Specialist 500 mg PO 1 tab Results AMB Urinalysis, Automated UA Leukoctes 0 Juan R/uL Last Edit by YAO Swift on 04/12/24 15:04 UA Nitrite Negative Last Edit by YAO Swift on 04/12/24 15:04 UA Urobilinogen 0.2 mg/dL Last Edit by YAO Swift on 04/12/24 15:04 UA Protein 0 mg/dL Last Edit by Brittanie Baca Alfonso on 04/12/24 15:04 UA pH 6.0 Last Edit by YAO Swift on 04/12/24 15:04 UA Blood 0 Hola/uL Last Edit by YAO Swift on 04/12/24 15:04 UA Specific [place] 1.020 Last Edit by YAO Swift on 04/12/24 15:04 UA Ketone Negative Last Edit by YAO Swift on 04/12/24 15:04 UA Bilirubin 0 mg/dL Last Edit by YAO Swift on 04/12/24 15:04 UA Glucose 0 mg/dL Last Edit by YAO Swift on 04/12/24 15:04 Results Reviewed Results Reviewed: Laboratory Last Values Urine pH (Auto) 6.0 04/12/24 15:03 Specific [place] (Auto) 1.020 04/12/24 15:03 Urine Protein (Auto) 0 mg/dL 04/12/24 15:03 Glucose (UA)(Auto) 0 mg/dL 04/12/24 15:03 Urine Ketones (Auto) Negative 04/12/24 15:03 Urine Blood (Auto) 0 Hola/uL 04/12/24 15:03 Urine Nitrite (Auto) Negative 04/12/24 15:03 Urine Bilirubin (Auto) 0 mg/dL 04/12/24 15:03 Urine Urobilinogen (Auto) 0.2 mg/dL 04/12/24 15:03 Leukocyte Esterase (Auto) 0 Juan R/uL 04/12/24 15:03 Collected: 01/12/24 Location: .LAB Received: 01/17/24 Diagnosis Urine: Negative for high-grade urothelial carcinoma. COMMENT: Examination of a monolayer preparation slide shows benign urothelial cells, some with reactive changes, scattered benign squamous cells, casts, occasional inflammatory cells, and occasional red blood cells. Clinical History Malignant neoplasm of urinary bladder Material Received Urine Gross Description Received are 42 cc of cloudy yellow fluid from which a ThinPrep slide is prepared. Collected: 02/15/23 Location: [facility] Received: 02/15/23 THIS IS A CORRECTED REPORT This is a corrected report. Any previous versions are stored internally and are available if necessary. Diagnosis A. Urinary bladder, posterior wall, biopsy: Benign urothelium with muscularis propria present. B. Urinary bladder, right lateral wall, biopsy: Benign urothelium with muscularis propria present. C. Urinary bladder, dome, biopsy: Benign urothelium with muscularis propria present. D. Urinary bladder, left lateral wall, transurethral resection: -Invasive papillary urothelial carcinoma, high grade. -Tumor invades subepithelial connective tissue (lamina propria). -Muscularis propria is not identified. Synoptic report - Bladder, transurethral resection/biopsy Procedure: Transurethral resection Tumor site: Per operative note: Left lateral wall Histologic type: Papillary urothelial carcinoma, invasive Histologic grade: High-grade Muscularis propria: Not identified Extent of invasion: Invades lamina propria (subepithelial connective tissue) Lymphovascular invasion: Not identified Note: Diagnosis corrected from low grade to high grade. Communication note added. 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 Assessment & Plan Assessment & Plan (1) Bladder cancer: Code(s): C67.9 - Malignant neoplasm of bladder, unspecified Category: Medical Plan Bladder cancer diagnosed 01/2023. Surveillance office cystoscopy within normal limits. Plan urine for FISH, continue surveillance cystoscopy follow-up in 4 months Orders: Orders AMB Urinalysis Automated Today C67.9 - Malignant neoplasm of bladder, unspecified, Z13.9 - Encounter for screening, unspecified AMB Cystoscopy Today C67.9 - Malignant neoplasm of bladder, unspecified FISH Bladder Cancer Today C67.9 - Malignant neoplasm of bladder, unspecified Patient Instructions: The patient had an opportunity to ask questions regarding treatment plan. The patient expressed understanding and agreement with the above treatment plan. The patient is aware they should contact our office by phone for worsening of their current condition or the appearance of new symptoms. Compliance is encouraged with any medications and followup testing that is ordered. It is a privilege to be allowed the opportunity to participate in the urologic care of your patient. If you have any questions or concerns regarding treatment for the above conditions please do not hesitate to contact me. The office telephone contact is [phone]. This note is constructed in part using voice recognition software. While every effort has been made to ensure accuracy conservation assistant errors may have been included. Yours sincerely, Betsey Villalobos MD Coding Level of Care Code Procedure Only Diagnoses Bladder cancer C67.9 CPT Codes Cystoscopy - CPT: 27562-[id number] ([id number])
== END 2024-04-12 15:49 | disposition home or self-care (01) ==
PROVIDERS: PCP Family Medicine; Visit Provider Urology
DX: C67.2 Malignant neoplasm of lateral wall of bladder (principal); Z13.9 Encounter for screening, unspecified
CPT/HCPCS: 52000

== ENCOUNTER 2025-03-07 14:38 | Outpatient (AMB) | payer MEDICARE, MEDICAID, SELFPAY ==
--- NOTE | 2025-03-07 15:30 | A.OFFVIS_ITS ---
Intake Visit Reasons: 1y follow up Intake Note: Patient is Present for 1 year follow up Urology Med: None Antibiotic Allergy:None Blood Thinner: None PVR:0ml Food Operations Manager Required: Yes Allergies No Known Allergies Allergy (Verified 03/07/25 15:31) HPI Comments Details: 04/12/24--Here for surveillance office cystoscopy--the patient is here with his who interprets for him. He states he is doing well denies irritative or obstructive voiding symptoms, denies gross hematuria. Cystoscopy findings: Bladder mucosa no suspicious recurrence bladder lesions visualized. 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 He completed gemcitabine bladder installation weekly for 6 weeks. He is here for surveillance office cystoscopy. He denies irritative voiding symptoms he denies gross hematuria. Urinalysis leukocytes negative blood negative. 01/12/2024--Office cystoscopy-findings: Bladder mucosa previous biopsied areas scarring noted no recurrent or suspicious bladder lesions noted. Plan urine for cytology, office cystoscopy surveillance every 3 months 1-1/2 - 2 years. 09/12/23-- Office cysto- 09/12/23--Bladder no recurrence The patient is a Turk[place] speaking male. 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 He was last seen by me on 05/13/23. He has Completed Gemcitabine bladder instil lations weekly for 6 weeks. Initial pathology results from 02/15/23 -- invasive papillary urothelial carcinoma, high grade. There was invasion into the lamina propria and muscularis propria is not identified in the specimen. 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 Results: Initial pathology results from 02/15/23 -- indicate invasive papillary urothelial carcinoma, high grade. There was invasion into the- lamina propria and muscularis propria is not identified in the specimen. 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 Father Stroke aborted by administration of thrombolytic agent Social History Household Members: Spouse Housing: House Alcohol intake: never Patient Tobacco Use Status: Never used Tobacco service: No Current occupational status: unemployed Results AMB Urinalysis, Automated UA Leukoctes 0 Juan R/uL Last Edit by Michael House, [facility] on 03/07/25 16:36 UA Nitrite Last Edit by Michael House, [facility] on 03/07/25 16:36 UA Urobilinogen 3.5 mg/dL Last Edit by Michael House, [facility] on 03/07/25 16:36 UA Protein 15 mg/dL Last Edit by Michael House, [facility] on 03/07/25 16:36 UA pH 5.5 Last Edit by Michael House, [facility] on 03/07/25 16:36 UA Blood 10 Hola/uL Last Edit by Michael House, [facility] on 03/07/25 16:36 UA Specific [place] 1.030 Last Edit by Michael House, [facility] on 03/07/25 16:36 UA Ketone Last Edit by Michael House, [facility] on 03/07/25 16:36 UA Bilirubin 0 mg/dL Last Edit by Michael House, [facility] on 03/07/25 16:36 UA Glucose 0 mg/dL Last Edit by Michael House, [facility] on 03/07/25 16:36 Assessment & Plan Assessment & Plan Orders: Orders 2 AMB Urinalysis Automated Today C67.9 - Malignant neoplasm of bladder, unspecified, N40.0 - Benign prostatic hyperplasia without lower urinary tract symptoms, R31.0 - Gross hematuria, R31.29 - Other microscopic hematuria, R31.9 - Hematuria, unspecified Coding
--- OUTSIDE RECORDS SUMMARY | 2025-03-07 17:16 | XMS_ITS | Clinical Summary ---
Author Organization [employer] Address [address] [place] [address] [address] [place] [address] Care Team Providers Care Saddle And Side Wire Stitcher Name Role Phone Benita Grady MD Primary Care Provider [phone] Betsey Narayan MD Unavailable Micky Skinner MD Unavailable [phone] Medications losartan (Cozaar) 50 MG tabletIndications :Benign hypertension TAKE 1 TABLET BY MOUTH EVERY DAY IN THE MORNING 90 tablet 1 5 Active omeprazole (PriLOSEC) [address] capsuleIndication s:Gastroesophagea l reflux disease, unspecified whether esophagitis present TAKE 1 CAPSULE BY MOUTH EVERY DAY NEEDED FOR ABDOMINAL PAIN 90 capsule 1 5 Active simvastatin (Zocor) 40 MG tabletIndications :Dyslipidemia TAKE 1 TABLET BY MOUTH EVERY DAY AT BEDTIME 90 tablet 1 5 Active Mag-G 500 (27 Mg) MG tabletIndications :Benign hypertension TAKE 1 TABLET BY MOUTH EVERY DAY 90 tablet 1 5 Active Active Problems Problem Noted Date Diagnosed Date Cardiac risk counseling 01/25/2024 Overview (01/30/2024): Calculated 01/25/24: High Risk The 10-year ASCVD risk score (Naida OLIVEIRA, et al., 2019) is: 13.1% Values used to calculate the score: Age: 68 years Sex: Male Is Non- : No Diabetic: No Tobacco smoker: No Systolic Blood Pressure: 124 mmHg Is BP treated: Yes HDL Cholesterol: 56 mg/dL Total Cholesterol: 176 mg/dL Lab Results Component Value Date LDLCHOL 107 (H) 05/14/2022 LDLCHOL 155 (H) 12/18/2020 -Tobacco cessation: not applicable -Statin therapy: continue simvastatin 40, change to atorvastatin 80 LDL not < 100 at recheck -Importance of moderate physical activity and nutrition interventions discussed. Preventative health care 06/29/2023 Overview (06/29/2023): -next physical exam due after -eye care facilitated by -dental home is Bladder cancer 03/03/2023 Overview (04/18/2024): He presented with hematuria in September 2022 without any irritative voiding symptoms. UA revealed 2+ blood, he underwent CT urogram with and without contrast on 01/2023 which revealed a lobulated/pedunculated 4.5 x 3 x 2.6 cm enhancing mass along the left wall of the bladder. No hydroureteronephrosis or lymphadenopathy. 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 This invades lamina propria. -followed by urology Dr. Betsey Villalobos MD and oncologist Socorro Montalvo, - 04/2023 Dr. Montalvo ordered MRI pelvis with contrast. PET[facility] at [facility] -s/p Gemcitabine bladder instillations weekly for 6 weeks -apt with Dr. Betsey Villalobos MD 04/12/24 Surveillance office cystoscopy within normal limits. Plan urine for FISH, continue surveillance cystoscopy follow-up in 4 months GERD (gastroesophageal reflux disease) 3 Screening PSA (prostate specific antigen) 2022 Tubular adenoma 10/17/2022 Overview (10/17/2022): -on colonoscopy with Dr. Skinner 07/30/2017. Per note 2021 Dr. Skinner recommends repeat in 10 years due to small size of polyp Assessment & Plan (10/17/2022 12:26 PM EST): -on colonoscopy with Dr. Skinner 07/30/2017. Per note [address] Skinner recommends repeat in 10 years due to small size of polyp BPH (benign prostatic hyperplasia) 09/16/2022 Overview (09/16/2022): -Seen by urologist, Dr. Betsey Villalobos MD 09/2022 Anxiety 02/02/2022 Benign hypertension 02/02/2022 Dyslipidemia 02/02/2022 Resolved Problems Problem Noted Date Diagnosed Date Resolved Date Hematuria 02/17/2023 11/06/2024 Microscopic hematuria 02/02/20222022 Encounters Date Type Department Care Team Description 12/30/2024 Refill [facility] [address] [place] [address] Benita Grady MD Benign hypertension; Gastroesophageal reflux disease, unspecified whether esophagitis present; Dyslipidemia from Last 3 Months Immunizations Immunization Administration Dates Next Due Influenza High-dose Quadriva lent Preservative Free 07/21/2022 Influenza Quadrivalent Adjuvanted 09/09/2023 Influenza injectable quadriv alent IIV4 with preservative 07/17/2019,08/31/2018,09/02/2017 Influenza injectable quadriv alent preservative free 07/29/2021,07/11/2020,08/11/2015 Influenza, IIV3, injectable 08/07/2014 Moderna Covid-19 Vaccine 12+ 04/15/2022, 10/29/2021,02/02/2021,2020 Pfizer Covid-19 Vaccine 12+ 09/15/2023 Pneumococcal Conjugate PCV 20 05/14/2022 TD (adult), 2 Lf tetanus tox oid, preservative free, adsorbed 06/07/2024 Tdap 08/07/2014 Zoster, Recombinant 07/21/2022,05/14/2022 Family History Medical History Relation Name Comments Stroke Father Relation Name Status Comments Father Social History Tobacco Use Types Packs/Day Years Used Date Smoking Tobacco: Never Smokeless Tobacco: Never Tobacco Cessation:Counseling Given: Not Answered Alcohol Use Standard Drinks/Week Comments Never 0 (1 standard drink = 0.6 oz pur e alcohol) Depression Answer Date Recorded Patient Health Questionnaire-9 Score 8 06/07/2024 Patient Health Questionnaire-9 Score 8 06/07/2024 Last PHQ-9: Questionnaire Data Not on file 0 06/07/2024 Housing Stability Answer Date Recorded What is your housing situation today? I have wali carney 06/07/[address] you li ve. Do you have problems with any of the following? None of the above 06/07/2024 Food Insecurity Answer Date Recorded Within the past 12 months, y ou worried that your food would run out before you got money to buy more: Never True 2023 Within the past 12 months,th e food you bought just didn't last and you didn't have enough money to get more: Sometimes True 06/07/2024 Transportation Answer Date Recorded In the past 12 months, has l ack of transportation kept you from medical appts, meetings, work or from getting things needed for daily living? No 06/07/2024 Utilities Answer Date Recorded In the past 12 months, has t he electric, gas, oil or water company threatened to shut off services in your home? I am not sure 06/07/2024 Depression Answer Date Recorded Patient Health Questionnaire-2 Score 6 06/07/2024 Internet Access Answer Date Recorded Internet Access Q1 No 06/07/2024 Internet Access Q2 Not on file 06/07/2024 Sex and Gender Information Value Date Recorded Sex Assigned at Male 08/02/2022 10:20 AM EDT Legal Sex Male 10:20 AM EDT Gender Identity Male 08/02/2022 10:20 AM EDT Sexual Orientation Choose not to disclose 2021 10:20 AM EDT Last Filed Vital Signs Vital Sign Reading Time Taken Comments Blood Pressure 110/80 06/07/2024 2:58 PM EDT Pulse 75 06/07/2024 2:58 PM EDT Temperature 36.5 ??C (97.7 ??F) 06/07/2024 2:58 PM ED T Respiratory Rate 20 06/07/2024 2:58 PM EDT Oxygen Saturation 99% 06/07/2024 2:58 PM EDT Inhaled Oxygen Concentration - - Weight 96.6 kg (213 lb) 06/07/2024 2:58 PM EDT Height 177.8 cm (5' 10 ) 06/07/2024 2:58 PM EDT Body Mass Index 30.56 06/07/2024 2:58 PM EDT Plan of Treatment Upcoming Encounters Date Type Department Care Team (Late st Contact Info) Description 03/25/2025 11:00 AM EDT Office Visit [facility] [address] [place] [address] Benita Grady MD [address] [place] [address] Health Maintenance Due Date Last Done Comments CT Colonography 1957 FIT DNA/Cologuard 1957 FIT 1957 FOBT 1957 Sigmoidoscopy 1957 Alcohol/Substance Use Screening 1969 COVID-19 Vaccine ( season) 2024 06/19/2024, 09/15/2023, 04/15/2022, Additional history exists Influenza Vaccine (Season Ended) 2025 09/09/2023, 07/21/2022, 07/29/2021, Additional history exists Depression Screening 06/07/2025 06/07/2024, 06/07/20 24 SDOH Screening 06/07/2025 06/07/2024 Tobacco Screening 06/07/2025 06/07/2024 Lipid Panel 05/14/2027 05/14/2022, 12/18/2020 Colonoscopy 07/20/2027 07/20/2017 Colorectal Cancer Screening 07/20/2027 RSV Patients and Patients Aged 60 years or older (1 - 1-dose 75+ series) 2032 DTaP/Tdap/Td Vaccines (3 - Td or Tdap) 06/07/2034 06/07/2024, 08/07/2014 Hepatitis C Screening Completed 12/18/2020 Pneumococcal Vaccine: 50+ Years Completed 05/14/2022 Zoster Vaccines Completed 07/21/2022, 05/14/2022 HIB Vaccines Aged Out No longer eligi ble based on patient's age to complete this topic HPV Vaccines Aged Out No longer eligi ble based on patient's age to complete this topic Hepatitis A Vaccines Aged Out No long er eligible based on patient's age to complete this topic Hepatitis B Vaccines Aged Out No long er eligible based on patient's age to complete this topic IPV Vaccines Aged Out No longer eligi ble based on patient's age to complete this topic Meningococcal B Vaccine Aged Out No l onger eligible based on patient's age to complete this topic Meningococcal Vaccine Aged Out No melida tenzin eligible based on patient's age to complete this topic RSV under 20 months Aged Out No longe r eligible based on patient's age to complete this topic Rotavirus Vaccines Aged Out No longer eligible based on patient's age to complete this topic Procedures Procedure Name Priority Date/Time Associated Diagnosis Comments LIPID PANEL, STANDARD Routine 05/14/2022 11:09 AM EDT ZZZ HISTORICAL HEPATITIS C AB W/REFL TO HCV RNA, QN, PCR Routine 12/18/2020 10:14 AM EDT HM COLONOSCOPY Routine 07/20/2017 from Last 3 Months or Most Recently Relevant to Health Maintenance Results * (ABNORMAL) LIPID PANEL, STANDARD (05/14/2022 11:09 AM EDT) Chol/HDLC Ratio 3.1 <5.0 (calc) [facility] Cholesterol, Total 176 <200 mg/dL [facility] HDL Cholesterol 56 > OR = 40 mg/dL [facility] LDL Cholesterol 107(H) mg/dL (calc) [facility] Comment: Reference range: <100 ?? Desirable range <100 mg/dL for primary prevention; ?? <70 mg/dL for patients with CHD or diabetic patients ?? with > or = 2 CHD risk factors. ?? LDL-C is now calculated using the [place] ?? calculation, which is a validated novel method providing ?? better accuracy than the Friedewald equation in the ?? estimation of LDL-C. ?? Joel KEANE et al. NEHA. 2013;310(19): 4947-7833 ?? (http://education.comScore.Wedia/faq/IKW856) Non-HDL Cholesterol 120 <130 mg/dL (calc) [facility] Comment: For patients with diabetes plus 1 major ASCVD risk ?? factor, treating to a non-HDL-C goal of <100 mg/dL ?? (LDL-C of <70 mg/dL) is considered a therapeutic ?? option. Triglycerides 52 <150 mg/dL [facility] 05/14/2022 11:0 9 AM EDT Benita Grady MD LAB BLOOD ORDERABLES Final Result Performing Organization Address [facility] Co de Phone Number [facility] [address] * HEPATITIS C AB W/REFL TO HCV RNA, QN, PCR (12/18/2020 10:14 AM EDT) HEPATITIS C ANTIBODY NON-REACT MALLY NON-REACT MALLY [facility] INDEX 0.01 <1.00 [facility] Comment: ?? HCV antibody was non-reactive. There is no laboratory ?? evidence of HCV infection. ?? In most cases, no further action is required. However, if recent HCV exposure is suspected, a test for HCV RNA (test code 94609) is suggested. ?? For additional information please refer to http://[employer]/faq/IBP57a4 (This link is being provided for informational/ educational purposes only.) ?? 12/18/2020 10:1 4 AM EDT Benita Grady MD HISTORICAL/NON ORDERABLE L ABS Final Result Performing Organization Address [facility] de Phone Number [facility] [address] [place] [address], * Hm Colonoscopy (07/20/2017) Colonoscopy tubular adenoma Historical Provider HEALTH MAINTENANCE Final Result from Last 3 Months or Most Recently Relevant to Health Maintenance Insurance [facility] STANDARD Care Teams Saddle And Side Wire Stitcher Relationship Specialty Start Date End Date Miguel A, MD Benita [address] [place] [address] PCP - General Family Medicine 04/19/14 Betsey Narayan MD [address] [place] [address] Urology 11/06/24 Micky Skinner MD [address] 3[address] [place] [address] General Surgery 11/06/24
== END 2025-03-07 16:23 | disposition home or self-care (01) ==
LOC: HO.HUSH 14:39
PROVIDERS: PCP Family Medicine; Visit Provider Urology
DX: R31.29 Other microscopic hematuria (principal); N40.0 Benign prostatic hyperplasia without lower urinary tract symptoms; R31.0 Gross hematuria; R31.9 Hematuria, unspecified; C67.9 Malignant neoplasm of bladder, unspecified

== ENCOUNTER → 2025-03-07 14:38 | Outpatient (BNVA) | payer MEDICARE, MEDICAID, SELFPAY | PROVIDERS: PCP Family Medicine; Visit Provider Urology | DX: C76.8 Malignant neoplasm of other specified ill-defined sites (principal); N40.1 Benign prostatic hyperplasia with lower urinary tract symptoms; R31.29 Other microscopic hematuria; R31.0 Gross hematuria | CPT/HCPCS: 81003 ==

== ENCOUNTER 2025-03-25 11:11 | Outpatient (REF) | payer MEDICARE, MEDICAID, SELFPAY ==
--- OUTSIDE RECORDS SUMMARY | 2025-03-25 12:48 | XMS_ITS | Clinical Summary ---
Author Organization [employer] Address [address] [place] [address] [address] [place] [address] Care Team Providers Care Stapling Machine Operator Name Role Phone Benita Grady MD Primary Care Provider [phone] Betsey Narayan MD Unavailable Micky Skinner MD Unavailable [phone] Allergies No known active allergies Medications losartan (Cozaar) 50 MG tabletIndications :Benign [...] EVERY DAY 90 tablet 1 5 Active ibuprofen 800 MG tabletIndications :Pain Take 1 tablet (800 mg) by mouth every 8 (eight) hours if needed for moderate pain or fever. 30 tablet 5 04/24/20 25 Active Active Problems Problem Noted Date Diagnosed [...] moderate physical activity and nutrition interventions discussed. Other specified health status 06/29/2023 Overview (03/25/2025): -next physical exam due after 06/07/25, done on 06/07/24 by other physician -eye care facilitated by [facility] -dental home is in [place] Bladder cancer 03/03/2023 Overview (03/25/2025): He presented with hematuria in September 2022 [...] ordered MRI pelvis with contrast. PET-CT at [facility] -s/p Gemcitabine bladder instillations weekly for 6 weeks -apt with Dr. Betsey Villalobos MD 04/12/24 Surveillance office cystoscopy within normal limits. Plan urine for FISH, continue surveillance cystoscopy follow-up in 4 months -Has apt with urology and oncology this summer Assessment & Plan (03/25/2025 7:06 AM EDT): GERD (gastroesophageal reflux disease) Screening PSA (prostate specific antigen) 2022 Overview (03/25/2025): Tubular adenoma 10/17/2022 Overview (10/17/2022): -on colonoscopy [...] MD 09/2022 Anxiety 02/02/2022 Benign hypertension 02/02/2022 Overview (03/25/2025): -Blood pressure is at goal -Continue lifestyle modifications -Continue current medications Assessment & Plan (03/25/2025 7:06 AM EDT): Dyslipidemia 02/02/2022 Overview (03/25/2025): No results found for: CHOL , TRIG , HDL , LDLCHOLCAL , LDL -continue lifestyle modification Assessment & Plan (03/25/2025 7:06 AM EDT): Resolved Problems Problem Noted Date Diagnosed Date Resolved Date Hematuria 02/17/2023 11/06/2024 Microscopic hematuria 02/02/20222022 Encounters Date Type Department Care Team Description 03/25/2025 11:00 AM EDT Office Visit [facility] [address] [place] [phone] Benita Grady MD Malignant neoplasm of lateral wall of urinary bladder (CMS/HCC) (Primary Dx); Benign hypertension; Dyslipidemia; Class 1 obesity due to excess calories with body mass index (BMI) of 30.0 to 30.9 in adult, unspecified whether serious comorbidity present; Dietary counseling; Exercise counseling; Anemia, unspecified type; Diabetes mellitus screening; Other specified health status; Screening PSA (prostate specific antigen); Pain 03/25/2025 Travel 12/30/2024 Refill [facility] [address] [place] [id number] Benita Grady MD Benign hypertension; Gastroesophageal reflux [...] got money to buy more: Never True 03/25/2025 Within the past 12 months,th e food you bought just didn't last and you didn't have enough money to get more: Never True Transportation Answer Date Recorded In the past 12 months, has l ack of transportation kept you from medical appts, meetings, work or from getting things needed for daily living? No 06/07/2024 Utilities Answer Date Recorded In the past 12 months, has t he electric, gas, oil or water company threatened to shut off services in your home? No 03/25/2025 Depression Answer Date Recorded Patient Health Questionnaire-2 Score 6 06/07/2024 Internet Access Answer Date Recorded Internet Access Q1 Yes 03/25/2025 Internet Access Q2 Not on file 03/25/2025 Sex and Gender Information Value Date Recorded Sex Assigned at Male 08/02/2022 10:20 AM EDT Legal Sex Male 10:20 AM EDT Gender Identity Male 08/02/2022 10:20 AM EDT Sexual Orientation Choose not to disclose 2021 10:20 AM EDT Last Filed Vital Signs Vital Sign Reading Time Taken Comments Blood Pressure 134/80 03/25/2025 10:27 AM EDT Pulse 76 03/25/2025 10:27 AM EDT Temperature 36.8 C (98.2 F) 03/25/2025 10:27 AM EDT Respiratory Rate 16 03/25/2025 10:27 AM EDT Oxygen Saturation 99% 06/07/2024 2:58 PM EDT Inhaled Oxygen Concentration - - Weight 95.3 kg (210 lb) 03/25/2025 10:27 AM EDT Height 177 cm (5' 9.69 ) 03/25/2025 10:27 AM EDT Body Mass Index 30.4 03/25/2025 10:27 AM EDT Plan of Treatment Health Maintenance Due Date Last Done Comments CT Colonography 1957 FIT DNA/Cologuard 1957 FIT 1957 FOBT 1957 Sigmoidoscopy 1957 COVID-19 Vaccine ( season) 2025 06/19/2024, 09/15/2023, 04/15/2022, Additional history exists Postponed from 12/17/2024 (Supply/Drug Shortage) Influenza Vaccine (Season Ended) 2025 09/09/2023, 07/21/2022, 07/29/2021, Additional history exists Depression Screening 06/07/2025 06/07/2024, 06/07/20 Alcohol/Substance Use Screening 03/25/2026 03/25/2025 SDOH Screening 03/25/2026 03/25/2025 Tobacco Screening 03/25/2026 03/25/2025 Lipid Panel 05/14/2027 05/14/2022, 12/18/2020 Colonoscopy 07/20/2027 [...] [facility] Comment: Reference range: <100 Desirable range <100 mg/dL for primary prevention; <70 mg/dL for patients with CHD or diabetic patients with > or = 2 CHD risk factors. LDL-C is now calculated using the Joel-Geiger calculation, which is a validated novel method providing better accuracy than the Friedewald equation in the estimation of LDL-C. Joel KEANE et al. NEHA. 2013;310(19): 0341-6660 (http://education.GoSquared/faq/AAC852) Non-HDL Cholesterol 120 <130 mg/dL (calc) [facility] Comment: For patients with diabetes plus 1 major ASCVD risk factor, treating to a non-HDL-C goal of <100 mg/dL (LDL-C of <70 mg/dL) is considered a therapeutic option. Triglycerides 52 <150 mg/dL [facility] 05/14/2022 11:0 9 AM EDT Benita Grady MD LAB BLOOD ORDERABLES Final Result [facility] [address] * HEPATITIS C AB W/REFL TO HCV RNA, QN, PCR (12/18/2020 10:14 AM EDT) Pathologist [facility] HEPATITIS C ANTIBODY NON-REACT MALLY NON-REACT MALLY [facility] INDEX 0.01 <1.00 [facility] Comment: HCV antibody was non-reactive. There is no laboratory evidence of HCV infection. In most cases, no further action is required. However, if recent HCV exposure is suspected, a test for HCV RNA (test code 58664) is suggested. For additional information please refer to http://education.[employer]/faq/HSJ81y9 (This link is being provided for informational/ educational purposes only.) 12/18/2020 10:1 4 AM EDT us Benita Grady MD HISTORICAL/NON ORDERABLE L ABS Final Result [facility] [address] * Colonoscopy (07/20/2017) Colonoscopy tubular adenoma us Historical Provider HEALTH MAINTENANCE Final Result from Last 3 Months or Most Recently Relevant to Health Maintenance Insurance [facility] STANDARD [employer] MEDICARE REPLACEMENT Care Teams Stapling Machine Operator Relationship Specialty Start Date End Date Mcmullen, MD Benita [address] [place] [address] PCP - General Family Medicine 04/19/14 Betsey Narayan MD [address] [place] [address] Urology 11/06/24 Micky Skinner MD [address] Floor [place], [place] General Surgery 11/06/24
[2025-03-25 12:58] LABS: MANUAL DIFF FLAG NO
[2025-03-25 13:08] LABS: Basophils Percent Auto 0.4 % (0-2); Eosinophils Absolute Auto 0.1 X10*3/uL (0.0-0.4); Eosinophils Percent Auto 2.1 % (0-4); Hematocrit 41.5 % (42.0-52.0); Hemoglobin 13.5 g/dl (14.0-18.0); Imm Gran Abs Auto 0.01 X10*3/uL (0.00-0.03); Imm Gran Pct Auto 0.2 % (0.0-0.4); Lymphocytes Percent Auto 39.1 % (20-40); Mean Corpuscular HGB Conc 32.5 g/dl (31.0-36.0); Mean Corpuscular Hemoglobin 27.8 pg (27.0-33.0); Mean Corpuscular Volume 85.4 fL (80.0-98.0); Mean Platelet Volume 9.4 fL (9.4-12.4); Monocytes Absolute Auto 0.5 X10*3/uL (0.1-1.2); Monocytes Percent Auto 9.7 % (2-11); Neutrophils Absolute Auto 2.5 x10*3/uL (2.0-8.3); Neutrophils Percent Auto 48.5 % (45-73); Platelet Count 272 X10*3/uL (160-400); Red Blood Count 4.86 X10*6/uL (4.60-5.80); Red Cell Distribution Width 13.1 % (11.0-16.0); White Blood Count 5.1 X10*3/uL (4.8-10.8)
[2025-03-25 13:15] LABS: Estimated Average Glucose 114 mg/dL; Hemoglobin A1c % 5.6 % (<6.0); Total Hemoglobin (HGBA1C) 3547.5633 umol/L
[2025-03-25 13:25] LABS: Alanine Aminotransferase 18 U/L (0-40); Albumin Level 4.2 g/dL (3.5-5.0); Alkaline Phosphatase 65 U/L (39-117); Anion Gap 10 (12-20); Aspartate Amino Transferase 25 U/L (5-37); Bilirubin Direct 0.2 mg/dL (0.0-0.5); Bilirubin Total 0.4 mg/dL (0.0-1.0); Blood Urea Nitrogen 17 mg/dL (9-16); Carbon Dioxide 26 mmol/L (22-29); Chloride 106 mmol/L (96-108); Cholesterol 186 mg/dL (<200); Estimated Glomerular Filt Rate > 60; Glucose Random 96 mg/dL (60-115); HDL Cholesterol 51 mg/dL (>40); Iron 71 mcg/dL (45-160); LDL Cholesterol Calculated 125 mg/dL (<100); Percent Iron Saturation 22 % (15-50); Potassium 4.1 mmol/L (3.3-5.1); Sodium 138 mmol/L (135-145); Total Iron Binding Capacity 321 mcg/dL (228-428); Total Protein 7.2 g/dL (6.5-8.0); Triglycerides 54 mg/dL (<150); Unsaturated Iron Binding 250 ug/dL
[2025-03-25 13:50] LABS: Ferritin 29 ng/mL (20-250); Folate 8.9 ng/mL (> or = 4.0); TSH reflex Free T4 2.17 uIU/mL (0.32-4.0); Vitamin B12 < 148 pg/mL (200-900)
== END 2025-03-25 11:12 | disposition home or self-care (01) ==
LOC: HO.HHCL 11:11
PROVIDERS: PCP Family Medicine; Visit Provider Family Medicine
DX: Z13.1 Encounter for screening for diabetes mellitus (principal); E78.5 Hyperlipidemia, unspecified; D64.9 Anemia, unspecified; I10 Essential (primary) hypertension
CPT/HCPCS: 36415; 80048; 80061; 80076; 82607; 82728; 82746; 83036; 83540; 84443; 85025

== ENCOUNTER 2025-04-08 12:44 | Outpatient (REF) | payer MEDICARE, MEDICAID, SELFPAY ==
--- NOTE | ~2025-04-08 | US_ITS ---
CLINICAL HISTORY: C67.9 - Malignant neoplasm of bladder, unspecified US of kidneys Comparison: None Findings: Right kidney is normal in size, echogenicity and morphology, 10.0 cm in length. Simple cysts 1.1 cm in the midpole, 1.8 cm in the lower pole. No calculus or hydronephrosis. Left kidney is normal in size, echogenicity and morphology, 12.2 cm in length. 5 mm simple cyst in the upper pole, no calculus or hydronephrosis. Limited color Doppler demonstrates unremarkable bilateral blood flow. Impression: Bilateral renal cysts. This document has been electronically signed by: Nan Maharaj MD on 04/09/2025 12:30:08
--- OUTSIDE RECORDS SUMMARY | 2025-04-08 13:15 | XMS_ITS | Clinical Summary ---
Author Organization [employer] Address [address] [place] [address] 7[address] [place] [address] Care Team Providers Care Lemon Grower Name Role Phone Benita Grady MD Primary Care Provider [phone] Betsey Narayan MD Unavailable Micky Skinner MD Unavailable [phone] Allergies No known active allergies Medications losartan [...] fever. 30 tablet 5 04/24/20 25 Active cyanocobalamin (Vitamin B-12) 1000 MCG/ML injectionIndicati ons:Vitamin B deficiency Inject 1 mL (1,000 mcg) into the muscle every 7 (seven) days. 1 mL 3 5 Active cyanocobalamin (Vitamin B-12) 1000 MCG tabletIndications :Vitamin B deficiency Take 1 tab po daily, start after 1 month of injections are completed, cymraes label 30 tablet 11 Active Hospital, Clinic, or Other Facility Administered Medication Ordered Dose Route Frequency Start Date End Date Status cyanocobalamin (Vitamin B-12) injection 1,000 mcgIndications:Vitamin B deficiency 1000 mcg IM Once 03/26/2025 Active Active Problems Problem Noted Date Diagnosed Date Vitamin B deficiency 03/26/2025 Overview (03/26/2025): Lab Results Component Value Date VITB12 <148 (L) 03/25/2025 FOLATE 8.9 03/25/2025 -vit B 1000iu weekly x 1 week then 1000 mcg weekly x 4 started 03/26/25, when will start 1000 mcg oral daily -check B12 in 3 months and 6 months Anemia 03/25/2025 Overview (03/25/2025): Lab Results Component Value Date FERRITIN 29 03/25/2025 HGB 13.5 (L) 03/25/2025 HGB 13.1 (L) 02/15/2023 HGB 13.2 05/14/2022 HEMATOCRIT 40.4 05/14/2022 -ordered repeat CBC, Ferritin and Iron panel 03/25/25 Assessment & Plan (03/26/2025 1:24 PM EDT): Lab Results Component Value Date FERRITIN 29 03/25/2025 HGB 13.5 (L) 03/25/2025 HGB 13.1 (L) 02/15/2023 HGB 13.2 05/14/2022 HEMATOCRIT 40.4 05/14/2022 -ordered repeat CBC, Ferritin and Iron panel 03/25/25 Orders: Ferritin; Future TSH with Reflex to Free T4; Future Iron And Total Iron Binding Capacity; Future Vitamin B12 (Cobalamin) and Folate Panel, Serum; Future Diabetes mellitus screening 03/25/2025 Assessment & Plan (03/26/2025 1:24 PM EDT): -Ordered A1C 03/25/25 Orders: Hemoglobin A1c; Future CBC auto differential; Future Cardiac risk counseling 01/25/2024 Overview (01/30/2024): Calculated [...] specified health status 06/29/2023 Overview (03/25/2025): -next comprehensive annual evaluation due after 03/25/27 -eye care facilitated by [facility] -[facility] is in [place] -[facility] proxy Assessment & Plan (03/26/2025 1:24 PM EDT): -next comprehensive annual evaluation due after 03/25/27 -eye care facilitated by [facility] is in [place] -[facility] proxy Bladder cancer 03/03/2023 Overview (03/25/2025): Diagnosed with bladder cancer 2022, not currently in a state of emergency. He presented with hematuria in September 2022 [...] Betsey Villalobos MD and oncologist Socorro Montalvo, -04/2023 Dr. Montalvo ordered MRI pelvis with contrast. PET-CT at [facility] -Repeat TUR base of the bladder tumor on 04/12/2023, showed benign urothelium with cystitis, and mild chronic inflammation. -s/p Gemcitabine bladder instillations weekly for 6 weeks -apt with Dr. Betsey Villalobos MD 04/12/24 Surveillance office cystoscopy within normal limits. Plan urine for FISH, continue surveillance cystoscopy follow-up in 4 months - Continued Surveillance Cystoscopy. Assessment & Plan (03/26/2025 1:24 PM EDT): Diagnosed with bladder cancer 2022, not currently in a state of emergency. He presented with hematuria in September 2022 [...] Betsey Villalobos MD and oncologist Socorro Montalvo, -04/2023 Dr. Montalvo ordered MRI pelvis with contrast. PET-CT at [facility] -Repeat TUR base of the bladder tumor on 04/12/2023, showed benign urothelium with cystitis, and mild chronic inflammation. -s/p Gemcitabine bladder instillations weekly for 6 weeks -apt with Dr. Betsey Villalobos MD 04/12/24 Surveillance office cystoscopy within normal limits. Plan urine for FISH, continue surveillance cystoscopy follow-up in 4 months - Continued Surveillance Cystoscopy. GERD (gastroesophageal reflux disease) 3 Screening PSA (prostate specific antigen) 2022 Overview (03/25/2025): Assessment & Plan (03/26/2025 1:24 PM EDT): Ordered repeat PSA 03/25/25. Previous had been normal. Tubular adenoma 10/17/2022 Overview (10/17/2022): -on colonoscopy [...] modifications -Continue current medications Assessment & Plan (03/26/2025 1:24 PM EDT): -Blood pressure is at goal -Continue lifestyle modifications -Continue current medications Orders: Basic Metabolic Panel; Future Dyslipidemia 02/02/2022 Overview (03/25/2025): No results found for: CHOL , TRIG , HDL , LDLCHOLCAL , LDL -continue lifestyle modification Assessment & Plan (03/26/2025 1:24 PM EDT): -ordered FLP and HFP 03/25/25 Orders: Hepatic Function Panel; Future Lipid Panel, Standard; Future Resolved Problems Problem Noted Date Diagnosed Date Resolved Date Hematuria 02/17/2023 11/06/2024 Microscopic hematuria 02/02/20222022 Encounters Date Type Department Care Team Description 03/26/2025 Results Follow-Up [facility] [address] [place] [phone] Benita Grady MD Hepatic Function Panel, Lipid Panel, Standard, Hemoglobin A1c, Additional followed-up results: 6 03/25/2025 11:00 AM EDT Office Visit [facility] [address] [place] [address] Benita Grady MD Malignant neoplasm of lateral wall of urinary bladder (CMS/HCC) (Primary Dx); Benign hypertension; Dyslipidemia; Anemia, unspecified type; Pain; Class 1 obesity due to excess calories with body mass index (BMI) of 30.0 to 30.9 in adult, unspecified whether serious comorbidity present; Dietary counseling; Exercise counseling; Diabetes mellitus screening; Screening PSA (prostate specific antigen); Other specified health status; Vitamin B deficiency 03/25/2025 Travel from Last 3 Months Immunizations Immunization Administration [...] Postponed from 12/17/2024 (Supply/Drug Shortage) Influenza Vaccine (#1) 2025 , 07/21/2022, 07/29/2021, Additional history exists Depression Screening 06/07/2025 06/07/2024, 06/07/20 Alcohol/Substance Use Screening 03/25/2026 03/25/2025 SDOH Screening 03/25/2026 03/25/2025 Tobacco Screening 03/25/2026 03/25/2025 Colonoscopy 07/20/2027 07/20/2017 Colorectal Cancer Screening 07/20/2027 Lipid Panel 03/25/2030 03/25/2025, 05/03, 12/18/2020 RSV Patients and Patients Aged 60 years [...] Procedure Name Priority Date/Time Associated Diagnosis Comments VITAMIN B12/FOLATE, SERUM PANEL Routine 03/25/2025 11:27 AM EDT Anemia, unspecified type IRON AND TOTAL IRON BINDING CAPACITY Routine 03/25/2025 11:27 AM EDT Anemia, unspecified type TSH W/REFLEX TO FT4 Routine 03/25/2025 1 1:27 AM EDT Anemia, unspecified type FERRITIN Routine 03/25/2025 11:27 AM EDT Anemia, unspecified type CBC WITH AUTO DIFFERENTIAL Routine 03/25/2025 11:27 AM EDT Diabetes mellitus screening BASIC METABOLIC PANEL Routine 03/25/2025 11:27 AM EDT Benign hypertension HEMOGLOBIN A1C Routine 03/25/2025 11:27 AM EDT Diabetes mellitus screening LIPID PANEL, STANDARD Routine 03/25/2025 11:27 AM EDT Dyslipidemia HEPATIC FUNCTION PANEL Routine 03/25/2025 11:27 AM EDT Dyslipidemia ZZZ HISTORICAL HEPATITIS C AB W/REFL TO HCV RNA, QN, PCR Routine 12/18/2020 10:14 AM EDT HM COLONOSCOPY Routine 07/20/2017 from Last 3 Months or Most Recently Relevant to Health Maintenance Results * (ABNORMAL) Vitamin B12 (Cobalamin) and Folate Panel, Serum (03/25/2025 11:27 AM EDT) Vitamin B12 <148(L) 200 - 900 pg/mL [facility] Comment:NORMAL 200-900 PG/ML INDETERMINATE 160-199 PG/ML DEFICIENT < 160 PG/ML Folate 8.9 > or = 4.0 ng/mL [facility] Comment:Reference Values:> o r = 4.0 ng/mL< 4.0 ng/mL suggests folate deficiency Methotrexate, aminopterin and folinic acid(leucovorin) are chemotherapeutic agents whose molecularstructures are similar to folate; therefore, the Architectfolate assay cannot be used for patients using these drugs. Blood Venous blood specimen / Unknown 03/25/2025 11:27 AM EDT 03/25/2025 12:50 PM EDT Benita Grady MD LAB BLOOD ORDERABLES Final Result [facility] [address] [place] [phone] * TSH with Reflex to Free T4 (03/25/2025 11:27 AM EDT) TSH reflex Free T4 2.17 0.32 - 4.0 uIU/mL [facility] Blood Venous blood specimen / Unknown 03/25/2025 11:27 AM EDT 03/25/2025 12:50 PM EDT Benita Grady MD LAB BLOOD ORDERABLES Final Result Performing Organization Address City/[facility]/ZIP Co de Phone Number [facility] [address] [place] [phone] * (ABNORMAL) CBC auto differential (03/25/2025 11:27 AM EDT) Pathologist [facility] White Blood Count 5.1 4.8 - 10.8 X10*3/uL [facility] Red Blood Count 4.86 4.60 - 5.80 X10*6/uL [facility] Hemoglobin 13.5(L) 14.0 - 18.0 g/dl [facility] Hematocrit 41.5(L) 42.0 - 52.0 % [facility] Mean Corpuscular Volume 85.4 80.0 - 98.0 fL [facility] Mean Corpuscular Hemoglobin 27.8 27.0 - 33.0 pg [facility] Mean Corpuscular HGB Conc 32.5 31.0 - 36.0 g/dl [facility] Red Cell Distribution Width 13.1 11.0 - 16.0 % [facility] Platelet Count 272 160 - 400 X10*3/uL [facility] Mean Platelet Volume 9.4 9.4 - 12.4 fL [facility] Neutrophils Percent Auto 48.5 45 - 73 % [facility] Imm Gran Pct Auto 0.2 0.0 - 0.4 % [facility] Lymphocytes Percent Auto 39.1 20 - 40 % [facility] Monocytes Percent Auto 9.7 2 - 11 % [facility] Eosinophils Percent Auto 2.1 0 - 4 % [facility] Basophils Percent Auto 0.4 0 - 2 % [facility] NRBC Pct Auto 0.0 0.0 - 0.2 /100WBC [facility] Neutrophils Absolute Auto 2.5 2.0 - 8.3 x10*3/uL [facility] Imm Gran Abs Auto 0.01 0.00 - 0.03 X10*3/uL [facility] Lymphocytes Absolute Auto 2.0 1.2 - 4.9 X10*3/uL [facility] Monocytes Absolute Auto 0.5 0.1 - 1.2 X10*3/uL [facility] Eosinophils Absolute Auto 0.1 0.0 - 0.4 X10*3/uL [facility] Basophils Absolute Auto 0.0 0.0 - 0.2 X10*3/uL [facility] NRBC Abs Auto 0.000 0.0 - 0.012 X10*3/uL [facility] Blood Venous blood specimen / Unknown 03/25/2025 11:27 AM EDT 03/25/2025 12:50 PM EDT us Benita Grady MD LAB BLOOD ORDERABLES Final Result [facility] [address] [place] [phone] * Iron And Total Iron Binding Capacity (03/25/2025 11:27 AM EDT) Iron 71 45 - 160 mcg/dL [facility] Total Iron Binding Capacity 321 228 - 428 mcg/dL [facility] Percent Iron Saturation 22 15 - 50 % [facility] Unsaturated Iron Binding 250 ug/dL [facility] Blood Venous blood specimen / Unknown 03/25/2025 11:27 AM EDT 03/25/2025 12:50 PM EDT Benita Grady MD LAB BLOOD ORDERABLES Final Result Performing Organization Address [facility] Co de Phone Number [facility] [address] [place] [phone] * Hemoglobin A1c (03/25/2025 11:27 AM EDT) Hemoglobin A1c 5.6 <6.0 % [facility] Comment:Hemoglobin A1C Refer ence Range Adults: 4.8 - 6.0 % Non diabetic: < 6.0 % Goal: < 7.0 %Additional Action Suggested: > 8.0 %Note: Hemoglobin A1c results are invalid for patients with abnormal amounts of HbF. Blood transfusions may impact the HbA1c concentration in the patient sample. Estimated Average Glucose 114 mg/dL [facility] Comment:eAG = Estimated ave rage glucose which is %A1C expressed asaverage glucose, using the formula of the O5D-AmjreaiTtddavi Glucose study (ADAG), Diabetes Care, Vol.31,#8,May. 2007 Blood Venous blood specimen / Unknown 03/25/2025 11:27 AM EDT 03/25/2025 12:50 PM EDT Benita Grady MD LAB BLOOD ORDERABLES Final Result Performing Organization Address [facility] Co de Phone Number [facility] [address] [place] [phone] * Ferritin (03/25/2025 11:27 AM EDT) Ferritin 29 20 - 250 ng/mL [facility] Blood Venous blood specimen / Unknown 03/25/2025 11:27 AM EDT 03/25/2025 12:50 PM EDT Benita Grady MD LAB BLOOD ORDERABLES Final Result [facility] [address] [place] [phone] * Hepatic Function Panel (03/25/2025 11:27 AM EDT) Bilirubin, Total 0.4 0.0 - 1.0 mg/dL [facility] Bilirubin, Direct 0.2 0.0 - 0.5 mg/dL [facility] Aspartate Amino Transferase 25 5 - 37 U/L [facility] Alanine Aminotransferase 18 0 - 40 U/L [facility] Total Protein 7.2 6.5 - 8.0 g/dL [facility] Albumin Level 4.2 3.5 - 5.0 g/dL [facility] Alkaline Phosphatase 65 39 - 117 U/L [facility] Blood Venous blood specimen / Unknown 03/25/2025 11:27 AM EDT 03/25/2025 12:50 PM EDT Benita Grady MD LAB BLOOD ORDERABLES Final Result Performing Organization Address City/[facility]/ZIP Co de Phone Number [facility] [address] [place] [phone] * (ABNORMAL) Lipid Panel, Standard (03/25/2025 11:27 AM EDT) Triglycerides 54 <150 mg/dL [facility] Comment:Desirable Triglyceri de: less than 150 mg/dLBorderline High Triglyceride 150-199 mg/dLHigh Triglyceride: 200-499 mg/dLVery High Triglyceride: greater than or equal to 5OO mg/dL Cholesterol 186 <200 mg/dL [facility] Comment:Desirable Cholestero l: less than 200 mg/dLBorderline High Cholesterol: 200-239 mg/dLHigh Cholesterol: greater than 239 mg/dL LDL Cholesterol Calculated 125(H) <100 mg/dL [facility] Comment:Desirable LDL: less than 100 mg/dLNear Optimal/Above Optimal LDL: 110- 129 mg/dLBorderline High LDL: 130-159 mg/dLHigh LDL: 160-189 mg/dLVery High LDL: greater than or equal to 190 mg/dL HDL Cholesterol 51 >40 mg/dL [facility] Comment:Desirable HDL: great er than 40 mg/dL Note: This HDL assay may give artificially low results in patients with liver disease. Blood Venous blood specimen / Unknown 03/25/2025 11:27 AM EDT 03/25/2025 12:50 PM EDT Benita Grady MD LAB BLOOD ORDERABLES Final Result Performing Organization Address City/[facility]/ZIP Co de Phone Number [facility] [address] [place] [phone] * (ABNORMAL) Basic Metabolic Panel (03/25/2025 11:27 AM EDT) Sodium 138 135 - 145 mmol/L [facility] Potassium 4.1 3.3 - 5.1 mmol/L [facility] Chloride 106 96 - 108 mmol/L [facility] Carbon Dioxide 26 22 - 29 mmol/L [facility] Anion Gap 10(L) 12 - 20 [facility] Urea Nitrogen (BUN) 17(H) 9 - 16 mg/dL [facility] Creatinine, Serum 1.05 0.5 - 1.4 mg/dL [facility] Estimated Glomerular Filt Rate >60 [facility] Comment:Chronic Kidney Disea se: Estimated GFR < 60 mL/min/1.74p8Skfews Kidney Disease: Estimated GFR < 15 mL/min/1.73m2 Glucose 96 60 - 115 mg/dL [facility] Calcium 9.0 8.4 - 10.2 mg/dL [facility] Blood Venous blood specimen / Unknown 03/25/2025 11:27 AM EDT 03/25/2025 12:50 PM EDT Benita Grady MD LAB BLOOD ORDERABLES Final Result Performing Organization Address City/[facility]/ZIP Co de Phone Number [facility] [address] [place] [phone] * HEPATITIS C AB W/REFL TO HCV RNA, QN, PCR (12/18/2020 10:14 AM EDT) HEPATITIS C ANTIBODY NON-REACT MALLY NON-REACT MALLY [facility] INDEX 0.01 <1.00 [facility] Comment: HCV antibody was non-reactive. There is no laboratory evidence of HCV infection. In most cases, no further action is required. However, if recent HCV exposure is suspected, a test for HCV RNA (test code 41766) is suggested. For additional information please refer to http://education.[employer]/faq/CAV89k3 (This link is being provided for informational/ educational purposes only.) 12/18/2020 10:1 4 AM EDT Benita Grady MD HISTORICAL/NON ORDERABLE L ABS Final Result [facility] [address] * Colonoscopy (07/20/2017) Colonoscopy tubular adenoma [place] Provider HEALTH MAINTENANCE Final Result from Last 3 Months or Most Recently Relevant to Health Maintenance Insurance [facility] STANDARD [employer] MEDICARE REPLACEMENT Advance Directives Documents on File Type Date Recorded 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
== END 2025-04-08 12:45 | disposition home or self-care (01) ==
LOC: HO.HMGCX 12:44
PROVIDERS: PCP Family Medicine; Visit Provider Urology
DX: C67.9 Malignant neoplasm of bladder, unspecified (principal)
CPT/HCPCS: 76775

== ENCOUNTER → 2025-04-08 13:09 | Outpatient (BNV) | payer MEDICARE, MEDICAID, SELFPAY | PROVIDERS: PCP Family Medicine; Visit Provider Radiology Diagnostic Radiology | DX: N28.1 Cyst of kidney, acquired (principal) | CPT/HCPCS: 76775 ==

== ENCOUNTER 2025-06-28 14:13 | Outpatient (REF) | payer MEDICARE, MEDICAID, SELFPAY | END 2025-06-28 14:14 | disposition home or self-care (01) | LOC: HO.LNP 14:13 | PROVIDERS: PCP Family Medicine; Visit Provider Urology | DX: N40.0 Benign prostatic hyperplasia without lower urinary tract symptoms (principal); C67.9 Malignant neoplasm of bladder, unspecified; R31.0 Gross hematuria; R31.29 Other microscopic hematuria | CPT/HCPCS: 52000; 81003; 88112; 99212 ==

== ENCOUNTER 2025-06-28 14:13 | Outpatient (AMB) | payer MEDICARE, MEDICAID, SELFPAY ==
--- NOTE | 2025-06-28 14:23 | A.OFFVIS_ITS ---
Intake Visit Reasons: cysto/ US Intake Note: Patient is present for a cysto/US * 04/09 Renal US Urology Med: None Antibiotic Allergy:None Blood Thinner: None Lot #:[id number] Exp:03/11/28 Hydraulic Lift Driver Required: Yes Hydraulic Lift Driver Name: [id number] Information Interpreted: non-clinical & clinical Allergies No Known Allergies Allergy (Verified 06/28/25 14:23) Medication List - Last Reconciled 06/28/25 by Betsey Villalobos MD losartan 50 mg PO DAILY magnesium gluconate (Mag-G) 27 mg PO DAILY omeprazole 20 mg PO DAILY simvastatin 40 mg PO BEDTIME HPI Comments Details: 06/28/25--Lenard is a 70-year-old male, [place] 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 He completed gemcitabine bladder installation weekly for 6 weeks. Here fu cysto. History of Present Illness The patient is a 70-year-old male presenting with invasive bladder cancer surveillance. The patient was diagnosed with invasive bladder cancer and underwent transurethral resection (TUR) in January 2023. Follow-up testing of the bladder tumor base and biopsy in April 2023 was negative. The patient completed a course of gemcitabine bladder instillation weekly for six weeks. A renal ultrasound conducted on April 09, 2025, revealed bilateral renal cysts with no suspicious renal masses. During the current visit, cystoscopy revealed a thickening of the bladder wall, although no lesions were observed. The bladder wall thickening is attributed to the bladder working hard to expel urine, despite the absence of urination issues reported by the patient. Results - Renal ultrasound (04/09/25): Bilateral renal cysts, no suspicious renal masses - Cystoscopy:06/28/25-- No lesions observed, bladder wall thickening noted Plan 1. Invasive Bladder Cancer - Continue surveillance cystoscopy every six months. - No lesions observed during current cystoscopy. 2. Bladder Wall Thickening - Prescribed medication to relax the prostate area to aid urine flow. Tamsulosin - Advised to take medication in the evening to minimize dizziness. - Instructed to stop medication and inform nurse if dizziness occurs. 3. Bilateral Renal Cysts - No immediate intervention required as no suspicious masses were noted. 4. 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 He completed gemcitabine bladder installation weekly for 6 weeks. Sched fu cysto. 04/12/24--Here for surveillance office cystoscopy--the patient is here with his who interprets for him. He states he is doing well denies irritative or obstructive voiding symptoms, denies gross hematuria. Cystoscopy findings: Bladder mucosa no suspicious recurrence bladder lesions visualized. 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 He completed gemcitabine bladder installation weekly for 6 weeks. He is here for surveillance office cystoscopy. He denies irritative voiding symptoms he denies gross hematuria. Urinalysis leukocytes negative blood negative. 01/12/2024--Office cystoscopy-findings: Bladder mucosa previous biopsied areas scarring noted no recurrent or suspicious bladder lesions noted. Plan urine for cytology, office cystoscopy surveillance every 3 months 1-1/2 - 2 years. 09/12/23-- Office cysto- 09/12/23--Bladder no recurrence The patient is a [place] Islander speaking male. 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 He was last seen by me on 05/13/23. He has Completed Gemcitabine bladder instillations weekly for 6 weeks. Initial pathology results from 02/15/23 -- invasive papillary urothelial carcinoma, high grade. There was invasion into the lamina propria and muscularis propria is not identified in the specimen. 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 Results: Initial pathology results from 02/15/23 -- indicate invasive papillary urothelial carcinoma, high grade. There was invasion into the- lamina propria and muscularis propria is not identified in the specimen. 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 Father Stroke aborted by administration of thrombolytic agent Social History Household Members: Spouse Housing: House Alcohol intake: never Patient Tobacco Use Status: Never used Tobacco service: No Current occupational status: unemployed Review of Systems Const All systems reviewed & are unremarkable except as noted in HPI and below Reports no additional complaints Eyes Reports no additional complaints ENT Reports no additional complaints Card Reports no additional complaints Resp Reports no additional complaints GI Reports no additional complaints Reports as per HPI Musc Reports no additional complaints Skin/Breast Reports system reviewed and no additional complaints, except as documented Neuro Reports no additional complaints Psych Reports no additional complaints Endo Reports no additional complaints Surinder/Lymph Reports no additional complaints Aller/Immun Reports no additional complaints Office Procedures Cystoscopy Consent Discussed risk and benefit or proposed procedure with the patient. Information consent for procedure given to the patient. Discussed technical aspects, risks, benefits and alternatives in full. Addressed all of the patient's questions and concerns regarding the procedure. The patient demonstrated knowledge and understanding. They wish to proceed with this procedure. Preparation The patient was prepped in the usual manner. A water inspector was present and in the room. Genitalia was prepped with betadine solution in a sterile manner. Lidocaine Jelly 2% was placed into the urethra and 16Fr flexible Olympus cystoscope was inserted into the meatus after adequate lubrication. Procedure Time out per protocol performed. The flexible cystoscope is passed transurethrally: The bladder was inspected in its entirety with utilization retroflexion displaying: Tumor(s): no suspicious bladder lesions visualized Trabeculation: Moderate with cellule changes Mucosal Erthema: Orifices: normal shape and position Urethra: normal Cystoscopy findings: prostatic urethra trilobar enlargement, bulbous urethra WNL, no suspicious bladder lesions visualized [id number] DISPOSABLE SCOPE URO-G FLEXIBLE SCOPE Procedure code (CPT) selection complete Office Meds lidocaine HCl 2 % mucosal jelly in applicator Performing Provider: Betsey Villalobos MD Performing Location: [facility] Administered by: Devi Gonzalez RN on 06/28/25 14:45 Dose Route Admin Location Dispensed Lot Number Expiration Date NDC Poultry Cutter 10 mL intra-urethral 20 mL ciprofloxacin HCl 500 mg tablet Performing Provider: Betsey Villalobos MD Performing Location: [facility] Administered by: Devi Gonzalez RN on 06/28/25 14:45 Dose Route Admin Location Dispensed Lot Number Expiration Date NDC Poultry Cutter 500 mg PO 1 tab phenazopyridine 200 mg tablet Performing Provider: Betsey Villalobos MD Performing Location: [facility] Administered by: Devi Gonzalez RN on 06/28/25 14:45 Dose Route Admin Location Dispensed Lot Number Expiration Date NDC Poultry Cutter 200 mg PO 1 tab Results AMB Urinalysis, Automated UA Leukoctes 0 Juan R/uL Last Edit by Balbina Castaneda on 06/28/25 16:05 UA Nitrite Negative Last Edit by Balbina Castaneda on 06/28/25 16:05 UA Urobilinogen 0.2 mg/dL Last Edit by Balbina Castaneda on 06/28/25 16:05 UA Protein 0 mg/dL Last Edit by Balbina Castaneda on 06/28/25 16:05 UA pH 6.0 Last Edit by Balbina Castaneda on 06/28/25 16:05 UA Blood 0 Hola/uL Last Edit by Balbina Castaneda on 06/28/25 16:05 UA Specific [place] 1.015 Last Edit by Balbina Castaneda on 06/28/25 16:05 UA Ketone Negative Last Edit by Balbina Castaneda on 06/28/25 16:05 UA Bilirubin 0 mg/dL Last Edit by Balbina Castaneda on 06/28/25 16:05 UA Glucose 0 mg/dL Last Edit by Balbina Castaneda on 06/28/25 16:05 Results Reviewed Results Reviewed: Laboratory Last Values Urine pH (Auto) 6.0 06/28/25 15:22 Specific [place] (Auto) 1.015 06/28/25 15:22 Urine Protein (Auto) 0 mg/dL 06/28/25 15:22 Glucose (UA)(Auto) 0 mg/dL 06/28/25 15:22 Urine Ketones (Auto) Negative 06/28/25 15:22 Urine Blood (Auto) 0 Hola/uL 06/28/25 15:22 Urine Nitrite (Auto) Negative 06/28/25 15:22 Urine Bilirubin (Auto) 0 mg/dL 06/28/25 15:22 Urine Urobilinogen (Auto) 0.2 mg/dL 06/28/25 15:22 Leukocyte Esterase (Auto) 0 Juan R/uL 06/28/25 15:22 Date of Service: 04/08/25 Malignant neoplasm of bladder, unspecified US of kidneys Comparison: None Findings: Right kidney is normal in size, echogenicity and morphology, 10.0 cm in length. Simple cysts 1.1 cm in the midpole, 1.8 cm in the lower pole. No calculus or hydronephrosis. Left kidney is normal in size, echogenicity and morphology, 12.2 cm in length. 5 mm simple cyst in the upper pole, no calculus or hydronephrosis. Limited color Doppler demonstrates unremarkable bilateral blood flow. Impression: Bilateral renal cysts. Collected: 01/12/24 Location: .[facility] Received: 01/17/24 Diagnosis Urine: Negative for high-grade urothelial carcinoma. COMMENT: Examination of a monolayer preparation slide shows benign urothelial cells, some with reactive changes, scattered benign squamous cells, casts, occasional inflammatory cells, and occasional red blood cells. Clinical History Malignant neoplasm of urinary bladder Material Received Urine Gross Description Received are 42 cc of cloudy yellow fluid from which a ThinPrep slide is prepared. Collected: 02/15/23 Location: [facility] Received: 02/15/23 THIS IS A CORRECTED REPORT This is a corrected report. Any previous versions are stored internally and are available if necessary. Diagnosis A. Urinary bladder, posterior wall, biopsy: Benign urothelium with muscularis propria present. B. Urinary bladder, right lateral wall, biopsy: Benign urothelium with muscularis propria present. C. Urinary bladder, dome, biopsy: Benign urothelium with muscularis propria present. D. Urinary bladder, left lateral wall, transurethral resection: -Invasive papillary urothelial carcinoma, high grade. -Tumor invades subepithelial connective tissue (lamina propria). -Muscularis propria is not identified. Synoptic report - Bladder, transurethral resection/biopsy Procedure: Transurethral resection Tumor site: Per operative note: Left lateral wall Histologic type: Papillary urothelial carcinoma, invasive Histologic grade: High-grade Muscularis propria: Not identified Extent of invasion: Invades lamina propria (subepithelial connective tissue) Lymphovascular invasion: Not identified Note: Diagnosis corrected from low grade to high grade. Communication note added. 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 Assessment & Plan Assessment & Plan (1) Screening PSA (prostate specific antigen): Code(s): Z12.5 - Encounter for screening for malignant neoplasm of prostate Category: Medical (2) Bladder cancer: Code(s): C67.9 - Malignant neoplasm of bladder, unspecified Category: Medical (3) BPH (benign prostatic hyperplasia): Code(s): N40.0 - Benign prostatic hyperplasia without lower urinary tract symptoms Category: Medical Plan Plan 1. Invasive Bladder Cancer - Continue surveillance cystoscopy every six months. urine cytology - No lesions observed during current cystoscopy. 2. Bladder Wall Thickening - Prescribed medication to relax the prostate area to aid urine flow. Tamsulosin - Advised to take medication in the evening to minimize dizziness. - Instructed to stop medication and inform nurse if dizziness occurs. 3. Bilateral Renal Cysts - No immediate intervention required as no suspicious masses were noted. 4. Needs PSA screening Orders: Orders AMB Cystoscopy 06/28/25 R31.29 - Other microscopic hematuria AMB Urinalysis Automated 06/28/25 N40.0 - Benign prostatic hyperplasia without lower urinary tract symptoms, R31.0 - Gross hematuria, R31.29 - Other microscopic hematuria PSA,Total (Free>4and<10) 06/28/25 Z12.5 - Encounter for screening for malignant neoplasm of prostate Urine Cytology 06/28/25 C67.9 - Malignant neoplasm of bladder, unspecified Medications: New tamsulosin (Flomax) 0.4 mg PO BEDTIME 30 caps 5RF Patient Instructions: The patient had an opportunity to ask questions regarding treatment plan. The patient expressed understanding and agreement with the above treatment plan. The patient is aware they should contact our office by phone for worsening of their current condition or the appearance of new symptoms. Compliance is encouraged with any medications and followup testing that is ordered. It is a privilege to be allowed the opportunity to participate in the urologic care of your patient. If you have any questions or concerns regarding treatment for the above conditions please do not hesitate to contact me. The office telephone contact is [phone]. This note is constructed in part using voice recognition software. While every effort has been made to ensure accuracy inspector materials and processes errors may have been included. Yours sincerely, Betsey Villalobos MD Scribe Plan - Not visible on output: Patient was informed and verbally consented to the use of an ambient scribe for clinic note documentation during this visit. Coding Level of Care Code Est Pt Level 4 (79432) Complex EM visit Add On G2211 Diagnoses Screening PSA (prostate specific antigen) Z12.5 Bladder cancer C67.9 BPH (benign prostatic hyperplasia) N40.0 CPT Codes Cystoscopy - CPT: 53028-[id number] ([id number])
--- OUTSIDE RECORDS SUMMARY | 2025-06-28 15:18 | XMS_ITS | Encounter Summary ---
Author Organization [employer] Address [address] [place] [address] [address] [place] [address] Care Team Providers Care Carpenter Labor Supervisor Name Role Phone Benita Grady MD Primary Care Provider [phone]- [phone] Betsey Narayan MD Unavailable Mciky Skinner MD Unavailable [phone] Encounter Details Date Type Department Care Team (Late st Contact Info) Description 11/08/2023 Orders Only [facility] [address] [place] [address] Benita Grady MD [address] [place] [address] Social History Tobacco Use Types Packs/Day Years Used Date Smoking Tobacco: Never Assessed Sex and Gender Information Value Date Recorded Sex Assigned at Male 08/02/2022 10:20 AM EDT Legal Sex Male 10:20 AM EDT Gender Identity Male 08/02/2022 10:20 AM EDT Sexual Orientation Choose not to disclose 2021 10:20 AM EDT documented as of this encounter Plan of Treatment Not on file documented as of this encounter Visit Diagnoses Not on filedocumented in this encounter Care Teams Carpenter Labor Supervisor Relationship Specialty Start Date End Date Benita Grady MD [address] [place] [address] [id number] PCP - General Family Medicine 04/19/14 Betsey Narayan MD [address] [place], [place] [id number] Urology 11/06/24 Micky Skinner MD [address] [place] [address] 3rd [place] [address] General Surgery 11/06/24 documented as of this encounter
--- OUTSIDE RECORDS SUMMARY | 2025-06-28 15:18 | XMS_ITS | Encounter Summary ---
Author Organization [employer] Address [address] [place] [address] [address] [place] [address] Care Team Providers Care Chief Accountant Name Role Phone Benita Grady MD Primary Care Provider [phone] Betsey Narayan MD Unavailable Micky Skinner MD Unavailable [phone] Encounter Details Date Type Department Care Team (Late st Contact Info) Description 11/06/2024 Orders Only [facility] [address] [place] [address] Benita Grady MD [address] [place] [address] Social History Tobacco Use Types Packs/Day Years Used Date Smoking Tobacco: Never Smokeless Tobacco: Never Alcohol Use Standard Drinks/Week Comments Never 0 (1 standard drink = 0.6 oz pur e alcohol) Depression Answer Date Recorded Patient Health Questionnaire-9 Score 8 06/07/2024 Patient Health Questionnaire-9 Score 8 06/07/2024 Last PHQ-9: Questionnaire Data Not on file 0 06/07/2024 Housing Stability Answer Date Recorded What is your housing situation today? I have waliandrew carney 06/07/[address] you [...] Diagnoses Not on filedocumented in this encounter Additional Health Concerns Assessment Noted Time PHQ-9 Depression Total Score: 8 06/07/20 24 3:25 PM EDT documented as of this encounter Care Teams Chief Accountant Relationship Specialty Start Date End Date Benita Grady MD [address] [place] [address] PCP - General Family Medicine 04/19/14 Betsey Narayan MD [address] [place] [address] Urology 11/06/24 Micky Skinner MD [address] [place] [address] General Surgery 11/06/24 documented as of this encounter
--- OUTSIDE RECORDS SUMMARY | 2025-06-28 15:18 | XMS_ITS | Encounter Summary ---
Author Organization [employer] Address [address] [place] [address] [address] [place] [address] Care Team Providers Care Weigher Alloy Name Role Phone Benita Grady MD Primary Care Provider [phone] Betsey Narayan MD Unavailable Micky Skinner MD Unavailable [phone] Encounter Details Date Type Department Care Team (Late st Contact Info) Description 10/17/2022 Abstract [facility] [address] [place] [address] Benita Grady MD [address] [place] [address] Social History Tobacco Use Types Packs/Day Years Used Date Smoking Tobacco: Never Assessed Sex and Gender Information Value Date Recorded Sex Assigned at Male 08/02/2022 10:20 AM EDT Legal Sex Male 10:20 AM EDT Gender Identity Male 08/02/2022 10:20 AM EDT Sexual Orientation Choose not to disclose 2021 10:20 AM EDT documented as of this encounter Miscellaneous Notes * Assessment & Plan Note - Benita Grady MD - 10/17/2022 12:26 PM EST Associated Problem(s): Tubular adenoma -on colonoscopy with Dr. Skinner 07/30/2017. Per note 2021 Dr. Skinner recommends repeat in 10 years due to small size of polyp documented in this encounter Plan of Treatment Not on file documented as of this encounter Procedures Procedure Name Priority Date/Time Associated Diagnosis Comments HM COLONOSCOPY Routine 07/20/2017 documented in this encounter Results * Colonoscopy (07/20/2017) Colonoscopy tubular adenoma us Historical Provider HEALTH MAINTENANCE Final Result documented in this encounter Visit Diagnoses Not on filedocumented in this encounter Care Teams Weigher Alloy Relationship Specialty Start Date End Date Benita Grady MD [address] [place] [id number] PCP - General Family Medicine 04/19/14 Betsey Narayan MD [address] [place] [address] Urology 11/06/24 Micky Skinner MD [address] [place] [address] General Surgery 11/06/24 documented as of this encounter
--- OUTSIDE RECORDS SUMMARY | 2025-06-28 15:18 | XMS_ITS | Clinical Summary ---
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 1 mL 3 5 Active cyanocobalamin (Vitamin B-12) 1000 MCG tabletIndications :Vitamin B deficiency Take 1 tab po daily, start after 1 month of injections are completed, surinamese label 30 tablet 11 5 Active Hospital, Clinic, or Other Facility Administered [...] due after 03/25/27 -eye care facilitated by [facility] is in [place] [facility] proxy Assessment & Plan (03/26/2025 1:24 PM EDT): -next comprehensive annual evaluation due after 03/25/27 -eye care facilitated by [facility] is in [place] [facility] proxy Bladder cancer 03/03/2023 Overview (05/13/2025): 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 He completed gemcitabine bladder installation weekly for 6 weeks. He presented with hematuria in September 2022 [...] ordered MRI pelvis with contrast. PET-CT at [facility] -Repeat TUR base of the bladder tumor on 04/12/2023, showed benign urothelium with cystitis, and mild chronic inflammation. -s/p Gemcitabine bladder instillations weekly for 6 weeks -apt with Dr. Betsey Villalobos MD 04/12/24 Surveillance office cystoscopy within normal limits. Plan urine for FISH, continue surveillance cystoscopy follow-up in 4 months - Continued Surveillance Cystoscopy. -note from 03/2025 reviewed, Sched fu cysto. -renal US 04/09/25 with urology Impression: Bilateral renal cysts. Assessment & Plan (03/26/2025 1:24 PM EDT): [...] ordered MRI pelvis with contrast. PET-CT at [facility] -Repeat TUR base of the bladder tumor on 04/12/2023, showed benign urothelium with cystitis, and mild chronic inflammation. -s/p Gemcitabine bladder instillations weekly for 6 weeks -apt with Dr. Betsey Villalobos MD 04/12/24 Surveillance office cystoscopy within normal limits. Plan urine for FISH, continue surveillance cystoscopy follow-up in 4 months - Continued Surveillance Cystoscopy. GERD (gastroesophageal reflux disease) Screening PSA (prostate [...] Encounters Date Type Department Care Team Description 04/08/2025 Orders Only [facility] External Provider, [facility] Malignant neoplasm of urinary bladder, unspecified site (CMS/HCC) (Primary Dx) from Last 3 Months Immunizations Immunization Administration [...] 2025 06/19/2024, 09/15/2023, 04/15/2022, Additional history exists Influenza Vaccine (#1) 2025 , 07/21/2022, 07/29/2021, [...] Procedure Name Priority Date/Time Associated Diagnosis Comments US RENAL COMPLETE Routine 04/09/2025 12: 30 PM EDT LIPID PANEL, STANDARD Routine 03/25/2025 11:27 AM EDT Dyslipidemia ZZZ HISTORICAL HEPATITIS C AB W/REFL TO HCV RNA, QN, PCR Routine 12/18/2020 10:14 AM EDT HM COLONOSCOPY Routine 07/20/2017 from Last 3 Months or Most Recently Relevant to Health Maintenance Results * US Renal Complete (04/09/2025 12:30 PM EDT) Anatomical Region Laterality Modality Kidney Ultrasound 04/09/2025 12:3 0 PM EDT Narrative 04/09/2025 12:31 PM EDT [facility] [address] [place] [address] [place] [address] Ultrasound Report Signed Patient: Lenard Braden MR#: [id number] : 1955 Acct:[id number] Age/Sex: 70 / M ADM Date: 04/08/25 Loc: HO.HMGCX Attending Dr: Betsey Villalobos MD Ordering Physician: Betsey Villalobos MD Date of Service: 04/08/25 Procedure(s): US renal BI Accession Number(s): [id number] cc: Betsey Villalobos MD; Benita Grady MD CLINICAL HISTORY: C67.9 - Malignant neoplasm of bladder, unspecified US of kidneys Comparison: None Findings: Right kidney is normal in size, echogenicity and morphology, 10.0 cm in length. Simple cysts 1.1 cm in the midpole, 1.8 cm in the lower pole. No calculus or hydronephrosis. Left kidney is normal in size, echogenicity and morphology, 12.2 cm in length. 5 mm simple cyst in the upper pole, no calculus or hydronephrosis. Limited color Doppler demonstrates unremarkable bilateral blood flow. Impression: Bilateral renal cysts. This document has been electronically signed by: Nan Maharaj MD on 04/09/2025 12:30:08 Dictated By: Nan Maharaj MD Signed By: <Electronically signed by Nan Maharaj MD in OV> 04/09/25 1231 DD/ 1230 TD/TT: 04/09/25 1230 Crime Analyst: Procedure Note Donotuseinterpreter, Image - 04/09/2025 [facility] [address] [place] [address] [place] [address] Ultrasound Report Signed Patient: Lenard BradenMR#: [id number] : 1955cct:[id number] Age/Sex: 70 / MADM Date: 04/08/25 Loc: HO.HMGCX Attending Dr: Betsey Villalobos MD Ordering Physician: Betsey Villalobos MD Date of Service: 04/08/25 Procedure(s): US renal BI Accession Number(s): [id number] cc: Betsey Villalobos MD; Benita Grady MD CLINICAL HISTORY: C67.9 - Malignant neoplasm of bladder, unspecified US of kidneys Comparison: None Findings: Right kidney is normal in size, echogenicity and morphology, 10.0 cm in length. Simple cysts 1.1 cm in the midpole, 1.8 cm in the lower pole. No calculus or hydronephrosis. Left kidney is normal in size, echogenicity and morphology, 12.2 cm in length. 5 mm simple cyst in the upper pole, no calculus or hydronephrosis. Limited color Doppler demonstrates unremarkable bilateral blood flow. Impression: Bilateral renal cysts. This document has been electronically signed by: Nan Maharaj MD on 04/09/2025 12:30:08 Dictated By: Nan Maharaj MD Signed By: <Electronically signed by Nan Maharaj MD in OV> 04/09/25 1231 DD/ 1230 TD/TT: 04/09/25 1230 Crime Analyst: us [facility] External Provider IMG US PROCEDURES Edited Result - Final * (ABNORMAL) Lipid Panel, Standard (03/25/2025 11:27 AM EDT) Triglycerides 54 <150 mg/dL [facility] Comment:Desirable Triglyceri de: less than 150 mg/dLBorderline High Triglyceride 150-199 mg/dLHigh Triglyceride: 200-499 mg/dLVery High Triglyceride: greater than or equal to 5OO mg/dL Cholesterol 186 <200 mg/dL [facility] Comment:Desirable Cholestero l: less than 200 mg/dLBorderline High Cholesterol: 200-239 mg/dLHigh Cholesterol: greater than 239 mg/dL LDL Cholesterol Calculated 125(H) <100 mg/dL [facility] Comment:Desirable LDL: less than 100 mg/dLNear Optimal/Above Optimal LDL: 110- 129 mg/dLBorderline High LDL: 130-159 mg/dLHigh LDL: 160-189 mg/dLVery High LDL: greater than or equal to 190 mg/dL HDL Cholesterol 51 >40 mg/dL [facility] Comment:Desirable HDL: great er than 40 mg/dL Note: This HDL assay may give artificially low results in patients with liver disease. Blood Venous blood specimen / Unknown 03/25/2025 11:27 AM EDT 03/25/2025 12:50 PM EDT Benita Grady MD LAB BLOOD ORDERABLES Final Result Performing Organization Address [facility] Co de Phone Number [facility] [address] [place] [address] [phone] * HEPATITIS C AB W/REFL TO HCV RNA, QN, PCR (12/18/2020 10:14 AM EDT) HEPATITIS C ANTIBODY NON-REACT MALLY NON-REACT MALLY [facility] INDEX 0.01 <1.00 [facility] Comment: HCV antibody was non-reactive. There is no laboratory evidence of HCV infection. In most cases, no further action is required. However, if recent HCV exposure is suspected, a test for HCV RNA (test code 52756) is suggested. For additional information please refer to http://education.[email or web address])/faq/VZK32q5 (This link is being provided for informational/ educational purposes only.) 12/18/2020 10:1 4 AM EDT Benita Grady MD HISTORICAL/NON ORDERABLE L ABS Final Result Performing Organization Address [facility] de Phone Number [facility] [address] [place] [address], * Colonoscopy (07/20/2017) Colonoscopy tubular adenoma Historical Provider HEALTH MAINTENANCE Final Result from Last 3 Months or Most Recently Relevant to Health Maintenance Insurance [facility] STANDARD [employer] MEDICARE REPLACEMENT Advance Directives Documents on File Type Date Recorded Patient Space Operations Officer Expl anation Advance Directives and Living Will 03/27/2025 11:21 AM Health Care Proxy Care Teams Marble Installer Supervisor Relationship Specialty Start Date End Date Miguel A, MD Benita [address] [place] [id number] PCP - General Family Medicine 04/19/14 Betsey Narayan MD [address] [place] [address] Urology 11/06/24 Micky Skinner MD [address] [place] [address] General Surgery 11/06/24
== END 2025-06-28 15:25 | disposition home or self-care (01) ==
LOC: HO.HUSH 14:13
PROVIDERS: PCP Family Medicine; Visit Provider Urology
DX: Z12.5 Encounter for screening for malignant neoplasm of prostate (principal); C67.9 Malignant neoplasm of bladder, unspecified; N40.0 Benign prostatic hyperplasia without lower urinary tract symptoms
CPT/HCPCS: 52000; 99214; G2211